=== PATIENT | female | born 1940 | race Caucasian/White ===

== ENCOUNTER 2017-11-25 16:27 | Emergency (ER) | payer OTHER ==
[~2017-11-25] VITALS: Ht 170.2 cm; Wt 69.0 kg
[~2017-11-25 16:27] MED LIST: ALBU90OI61 INH; ASPI325; ASPI325 PO; ASPI81EC; ATOR10; ATOR20; ATOR40TA PO; ATOR80 PO; Aspir-Trin325 MG PO; CALCAVITD PO; CARV3.125; CARV3.125 PO; CARV6.25 PO; CETI10 PO; CLOP75 PO; CODACE30 PO; CODGUAEL PO; Colace100 MG PO; DOCU100 PO; FISH1000 PO; FURO20; FURO20 PO; FURO40; FURO40 PO; Ferosul325 MG; Ferrous Sulfat325 M2 PO; HYDR1TAB94; HYDR1TAB94 PO; LISI5 PO; LORA1 PO; Lisinopril2.5 MG PO; MECL25 PO; METO25 PO; METO25ER PO; NITRSPRAY SL; POTA10T; POTA10T PO; POTCHL20ER PO; PRED20 PO; RXLORA1 PO; SULTRIDS PO; TRAM50 PO; [UNRECOGNIZED DRUG - CODE] PO; [UNRECOGNIZED DRUG - REMARK] PO
== END 2017-11-25 18:42 | disposition home or self-care (01) ==
LOC: ER 16:27
DX: S70.02XA Contusion of left hip, initial encounter (principal); R07.81 Pleurodynia; Z79.899 Other long term (current) drug therapy; Z79.82 Long term (current) use of aspirin; I10 Essential (primary) hypertension; I25.10 Atherosclerotic heart disease of native coronary artery without angina pectoris; I25.2 Old myocardial infarction; W01.0XXA Fall on same level from slipping, tripping and stumbling without subsequent striking against object, initial encounter
CPT/HCPCS: 71100; 73502; 99283

== ENCOUNTER 2019-06-30 17:01 | Observation (INO) | payer OTHER ==
[~2019-06-30] VITALS: Ht 167.6 cm; Wt 61.6 kg
[2019-06-30 17:32] LABS: BASOPHILS ABSOLUTE AUTO 0.08 K/mm3 (0.00-0.23); BASOPHILS PERCENT AUTO 1 % (0-2); EOSINOPHILS ABSOLUTE AUTO 0.51 K/mm3 (0.00-0.68); EOSINOPHILS PERCENT AUTO 4 % (0-6); Hematocrit 37.3 % (33.0-51.0); Hemoglobin 11.3 g/dL (11.5-16.0); IMMATURE GRAN ABSOLUTE AUTO 0.02 K/mm3 (0.00-0.10); IMMATURE GRAN PERCENT AUTO 0 % (0-1); LYMPHOCYTES ABSOLUTE AUTO 5.35 K/mm3 (0.84-5.20); LYMPHOCYTES PERCENT AUTO 46 % (21-46); MONOCYTES ABSOLUTE AUTO 0.68 K/mm3 (0.16-1.47); MONOCYTES PERCENT AUTO 6 % (4-13); Mean Corpuscular HGB 28.6 pg (26.0-34.0); Mean Corpuscular HGB Conc 30.3 g/dL (31.5-36.5); Mean Corpuscular Volume 94 fL (80-100); Mean Platelet Volume 10.7 fL (9.1-12.4); NEUTROPHILS ABSOLUTE AUTO 4.89 K/mm3 (1.96-9.15); NEUTROPHILS PERCENT AUTO 42 % (41-73); Platelet Count 240 K/mm3 (150-400); RDW Coefficient Variation 13.7 % (11.7-14.2); RDW Standard Deviation 47.8 fL (35.1-46.3); Red Blood Cell Count 3.95 M/mm3 (3.80-5.20); White Blood Cell Count 11.53 K/mm3 (4.00-11.30)
[2019-06-30 17:50] LABS: Alanine Aminotransfer (ALT/SGP 22 U/L (12-78); Albumin, Blood 3.5 g/dL (3.4-5.0); Albumin/Globulin Ratio 0.9 (0.8-1.8); Alk Phos 65 U/L (50-136); Anion Gap 11 mmol/L (6-16); Aspartate Aminotrans (AST/SGOT 26 U/L (12-37); Bilirubin, Total 0.5 mg/dL (0.1-1.0); Blood Urea Nitrogen 34 mg/dL (8-24); Bun/Creatinine Ratio 19.7 (12.0-20.0); CO2, Blood 25 mmol/L (21-32); Calcium, Blood 9.8 mg/dL (8.5-10.1); Chloride, Blood 101 mmol/L (98-108); Creatinine, Blood 1.73 mg/dL (0.40-1.00); Globulin, Blood 3.9 g/dL (2.2-4.0); Glomerular Filtration Rate 30 (60-); Glucose, Blood 128 mg/dL (70-99); Potassium, Blood 3.8 mmol/L (3.5-5.5); Sodium, Blood 137 mmol/L (136-145); Total Protein, Blood 7.4 g/dL (6.4-8.2); Troponin I <0.015 ng/mL (0.000-0.040)
[2019-06-30] MEDS ORDERED: MIRT15 PO (18:06)
[2019-06-30] MEDS ORDERED: METO25 PO (18:06)
[2019-06-30] MEDS ORDERED: FURO20 PO (18:06)
[2019-06-30] MEDS ORDERED: LISI5 PO (18:07)
[2019-06-30 18:23] LABS: International Normalized Ratio 0.95; Prothrombin Time Results 10.1 Sec (9.7-11.5)
[2019-06-30 18:37] LABS: Source, Urine Clean Catch
[2019-06-30 18:41] LABS: Appearance, Urine Clear (Clear); Bilirubin, Urine Neg (Neg); Blood, Urine 1+ (Neg); Color, Urine Yellow (P-Yellow); Glucose Qualitative, Urine Neg (Neg); Ketones, Urine Neg (Neg); Leukocyte Esterase, Urine 3+ (Neg); Nitrite, Urine Pos (Neg); Protein, Urine Neg (Neg); Specific Gravity, Urine 1.005 (1.003-1.022); Urobilinogen, Urine NORM (Normal)
[2019-06-30 18:52] LABS: White Blood Cells, Urine 25-50 /hpf (0-5)
[2019-06-30 18:53] LABS: Bacteria Many /hpf; Red Blood Cells, Urine 0-2 /hpf (0-2); Squamous Epithelial Cells Few /hpf (Few)
[2019-07-01 04:49] LABS: BASOPHILS ABSOLUTE AUTO 0.06 K/mm3 (0.00-0.23); BASOPHILS PERCENT AUTO 1 % (0-2); EOSINOPHILS ABSOLUTE AUTO 0.42 K/mm3 (0.00-0.68); EOSINOPHILS PERCENT AUTO 4 % (0-6); Hematocrit 28.4 % (33.0-51.0); Hemoglobin 8.8 g/dL (11.5-16.0); IMMATURE GRAN ABSOLUTE AUTO 0.02 K/mm3 (0.00-0.10); IMMATURE GRAN PERCENT AUTO 0 % (0-1); LYMPHOCYTES ABSOLUTE AUTO 3.37 K/mm3 (0.84-5.20); LYMPHOCYTES PERCENT AUTO 35 % (21-46); MONOCYTES ABSOLUTE AUTO 0.76 K/mm3 (0.16-1.47); MONOCYTES PERCENT AUTO 8 % (4-13); Mean Corpuscular Volume 94 fL (80-100); Mean Platelet Volume 10.9 fL (9.1-12.4); NEUTROPHILS ABSOLUTE AUTO 5.02 K/mm3 (1.96-9.15); NEUTROPHILS PERCENT AUTO 52 % (41-73); Platelet Count 175 K/mm3 (150-400); RDW Coefficient Variation 13.9 % (11.7-14.2); RDW Standard Deviation 47.4 fL (35.1-46.3); Red Blood Cell Count 3.03 M/mm3 (3.80-5.20); White Blood Cell Count 9.65 K/mm3 (4.00-11.30)
--- NOTE | 2019-07-01 05:08 | NUR ---
SHIFT SUMMARY: 78 Y/O FEMALE ADMITTED FOR SYNCOPE WITH FALL. SHE WAS STANDING UP FROM THE CHAIR WHEN SHE GOT DIZZY AND FELL. SHE HIT HER FORHEAD ON THE FLOOR, THERE IS QUESTION WHETHER SHE PASSES OUT OR NOT. SHE ARRIVED TO THE FLOOR VIA GURNEY. SHE WAS ABLE TO STAND AND TRANSFER SELF WITH NO DIFFICULTY. SHE WAS ALERT AND ORIENTED WIHT SOME OCCATIONAL CONFUSION. SHE DENIED ANY DIZZINESS THIS SHIFT. ORTHOSTATICS WERE NORMAL. TELEMETRY REPORTS NORMAL SINUS WITH PAC'S AT 70'S. IV INFUSED ALL NIGHT WITH NO DIFFICULTIES. NEURO CHECKS WERE ALL NEGATIVE. SLEPT BETWEEN INTERVENTIONS TONIGHT. BED ALARM PLACED FOR PERCAUTIONS, CALL LIGHT REMAINED IN REACH. NO FURTHER CHANGES TO REPORT WILL REPORT TO DAYSHIFT RN.
[2019-07-01 05:16] LABS: Bun/Creatinine Ratio 22.1 (12.0-20.0); Calcium, Blood 8.3 mg/dL (8.5-10.1); Creatinine, Blood 1.54 mg/dL (0.40-1.00); Potassium, Blood 4.2 mmol/L (3.5-5.5)
--- NOTE | 2019-07-01 06:42 | NUR ---
LAB RESULTS READ: NOTED A CHANGE IN HER HGB FROM 11.3 DOWN TO 8.8. HCT 37.3 DOWN TO 28.4. SPOKE TO DR. MUNGUIA REGARDING CHANGE, NEURO CHECKS NEGATIVE SO FAR. HE STATES TO JUST MONITOR IT FOR NOW. WILL PASS ON TO DAY SHIFT RN.
--- NOTE | 2019-07-01 13:03 | NUR ---
I NOTIFIED ABOUT 0750 OF ORION'S DROP IN HER H&H. I ALSO TOLD HER THAT CLINICALLY SHE LOOKED VERY STABLE. NO H/A. NO DIZZINESS. CLARKE. NO DOUBLE VISION. NO COMPLAINTS. SHE IS OX2. POOR HISTORIAN, PROBABLY AT HER BASELINE DEMENTIA.
[2019-07-01] MEDS ORDERED: ASPI325 PO (17:25)
[2019-07-01] MEDS ORDERED: CALCIUM 600 +1 EA11 PO (17:27)
[2019-07-01] MEDS ORDERED: DONE5 PO (17:32)
--- NOTE | 2019-07-01 18:38 | NUR ---
HER NEURO ASSESSMENT IS UNCHANGED THROUGHOUT THE DAY. SHE AMBULATES WELL WITH 1 ASSIST. SHE SETS OFF HER ALARMS BECAUSE SHE DOES NOT UNDERSTAND HOW TO USE THE NURSE CALL LIGHT OR TV. HER DAUGHTER VISITED THIS EVENING. THE PATIENT WANTED TO GO HOME. SHE JUST RECENTLY STARTED ON ARICEPT AT HOME FOR HER DEMENTIA. MED REC COMPLETED WITH HELP FROM THE DAUGHTER AND [facility].TELE NSR WITH PAC'S. IVF'S DC'D. PO INTAKE GOOD. MORE LAB ORDERED FOR MORNING.
[2019-07-02 05:18] LABS: Albumin, Blood 2.7 g/dL (3.4-5.0); Anion Gap 4 mmol/L (6-16); Blood Urea Nitrogen 28 mg/dL (8-24); Bun/Creatinine Ratio 18.7 (12.0-20.0); CO2, Blood 26 mmol/L (21-32); Calcium, Blood 8.5 mg/dL (8.5-10.1); Chloride, Blood 113 mmol/L (98-108); Glomerular Filtration Rate 36 (60-); Glucose, Blood 92 mg/dL (70-99); Phosphorus, Blood 3.4 mg/dL (2.5-4.9); Potassium, Blood 4.6 mmol/L (3.5-5.5); Sodium, Blood 143 mmol/L (136-145)
--- NOTE | 2019-07-02 05:21 | NUR ---
SHIFT SUMMARY NO ACUTE CHANGES THIS SHIFT. SLEPT WELL T/O NIGHT. AOX2, UNAWARE DATE OR PLACE, HAS HX DEMENTIA. VSS. DENIES DIZZINESS, DYSPNEA, N/V, HEADACHE OR PAIN. TELE IN PLACE, NSR @69. CALL LIGHT IN REACH & I WILL CONT. TO MONITOR PT UNTIL DAY SHIFT RN ASSUMES CARE.
--- NOTE | 2019-07-02 14:12 | NUR ---
Spiritual care visit conducted. Patient is sitting up in bed and alert. Patient is kind and smiles often. Patient repeats herself and forgets the information she has been given but she enjoys the moment she is in. Patient tells me about her who 20 years ago or more, about her daughter that she lives with and about the ay years that she went to jehovah[employer] witness every Sunday. I listen empathically and provide levity, companionship and a life review. Patient responds well and tells me how she enjoys visiting with me.
[2019-07-02] MEDS ORDERED: ASPI81CH PO (14:50)
[2019-07-02] MEDS ORDERED: THERA-D2000 UNIT PO (14:54)
[2019-07-02] MEDS ORDERED: CEFU500T30 PO (14:55)
--- NOTE | 2019-07-02 16:25 | NUR ---
LATE ENTRY: DISCHARGE SUMMARY: PATIENT DENIED PAIN OR DISCOMFORT THROUGHOUT SHIFT. PATIENT DENIED DIZZINESS OR LIGHTHEADEDNESS AT REST AND WITH MOBILITY. PATIENT AMBULATED SAFELY WITH FWW, GAIT BELT AND SBA. PATIENT DENIED CHANGES TO STATUS DURING AMBULATION. NO CHANGES TO NEURO STATUS THROUGHOUT SHIFT. PATIENT REPORTED IN THE MORNING THAT SHE WAS FEELING BETTER. PER DR. GALEANO ORDERS, PATIENT DISCHARGED. DISCHARGE RX SENT TO [facility] PER PREFERENCE. DISCHARGE INSTRUCTIONS AND EDUCATION PROVIDED TO PATIENT, DAUGHTER AND GRANDDAUGHTER. CONCERNS AND QUESTIONS ADDRESSED. DISCHARGE EDUCATION AND PAPERWORK PROVIDED TO PATIENT AND FAMILY. PATIENT DISCHARGED IN WHEELCHAIR WITH PROGRESSIVE DIE MAKER. PATIENT STABLE AT TIME OF DISCHARGE.
== END 2019-07-02 15:36 | disposition home or self-care (01) ==
LOC: ER 17:01 → MEDS 17:02 → ENPENDDIS 07-02 11:36 → MEDS 07-02 15:36
PROVIDERS: Emergency Medicine; Internal Medicine; Nurse Practitioner Acute Care; ADMIT Internal Medicine
DX: R55 Syncope and collapse (principal); N39.0 Urinary tract infection, site not specified; B96.20 Unspecified Escherichia coli [E. coli] as the cause of diseases classified elsewhere; E86.0 Dehydration; S00.83XA Contusion of other part of head, initial encounter; N17.9 Acute kidney failure, unspecified; I12.9 Hypertensive chronic kidney disease with stage 1 through stage 4 chronic kidney disease, or unspecified chronic kidney disease; N18.9 Chronic kidney disease, unspecified; D63.1 Anemia in chronic kidney disease; I25.10 Atherosclerotic heart disease of native coronary artery without angina pectoris; I25.2 Old myocardial infarction; F03.90 Unspecified dementia, unspecified severity, without behavioral disturbance, psychotic disturbance, mood disturbance, and anxiety; E78.5 Hyperlipidemia, unspecified; I73.9 Peripheral vascular disease, unspecified; Z95.1 Presence of aortocoronary bypass graft; Z79.82 Long term (current) use of aspirin; Z79.02 Long term (current) use of antithrombotics/antiplatelets; Z79.899 Other long term (current) drug therapy; W19.XXXA Unspecified fall, initial encounter; Y92.013 Bedroom of single-family (private) house as the place of occurrence of the external cause; S06.9X9A Unspecified intracranial injury with loss of consciousness of unspecified duration, initial encounter
CPT/HCPCS: 36415; 70450; 71046; 72125; 80048; 80053; 80069; 81001; 83880; 84484; 85025; 85610; 85730; 87077; 87086; 87186; 93005; 93010; 93306; 93880; 96361; 96365; 97110; 97116; 97161; 99285-25; J0696; J3480; J7030; P9612

== ENCOUNTER 2020-01-16 00:11 | Emergency (ER) | payer OTHER ==
[~2020-01-16] VITALS: Ht 170.2 cm; Wt 63.5 kg
[~2020-01-16 00:11] MED LIST changes: +ASPI81CH PO; +CALCIUM 600 +1 EA11 PO; +CEFU500T30 PO; +DONE5 PO; +MIRT15 PO; +THERA-D2000 UNIT PO
[2020-01-16 01:06] LABS: BASOPHILS ABSOLUTE AUTO 0.11 K/mm3 (0.00-0.23); BASOPHILS PERCENT AUTO 1 % (0-2); EOSINOPHILS ABSOLUTE AUTO 0.69 K/mm3 (0.00-0.68); EOSINOPHILS PERCENT AUTO 8 % (0-6); Hematocrit 37.3 % (33.0-51.0); Hemoglobin 11.4 g/dL (11.5-16.0); IMMATURE GRAN ABSOLUTE AUTO 0.02 K/mm3 (0.00-0.10); IMMATURE GRAN PERCENT AUTO 0 % (0-1); LYMPHOCYTES PERCENT AUTO 33 % (21-46); MONOCYTES ABSOLUTE AUTO 0.65 K/mm3 (0.16-1.47); MONOCYTES PERCENT AUTO 8 % (4-13); Mean Corpuscular HGB 27.6 pg (26.0-34.0); Mean Corpuscular HGB Conc 30.6 g/dL (31.5-36.5); Mean Corpuscular Volume 90 fL (80-100); Mean Platelet Volume 10.5 fL (9.1-12.4); NEUTROPHILS PERCENT AUTO 50 % (41-73); Platelet Count 223 K/mm3 (150-400); RDW Coefficient Variation 13.7 % (11.7-14.2); RDW Standard Deviation 45.3 fL (35.1-46.3); Red Blood Cell Count 4.13 M/mm3 (3.80-5.20); White Blood Cell Count 8.27 K/mm3 (4.00-11.30)
[2020-01-16 01:24] LABS: Albumin, Blood 3.3 g/dL (3.4-5.0); Albumin/Globulin Ratio 0.8 (0.8-1.8); Bilirubin, Total 0.3 mg/dL (0.1-1.0); Bun/Creatinine Ratio 21.2 (12.0-20.0); Calcium, Blood 8.9 mg/dL (8.5-10.1); Creatinine, Blood 1.65 mg/dL (0.40-1.00); Globulin, Blood 4.1 g/dL (2.2-4.0); Potassium, Blood 3.4 mmol/L (3.5-5.5); Total Protein, Blood 7.4 g/dL (6.4-8.2)
== END 2020-01-16 02:10 | disposition home or self-care (01) ==
LOC: ER 00:11
PROVIDERS: Emergency Medicine
DX: R10.9 Unspecified abdominal pain (principal); I10 Essential (primary) hypertension; I25.810 Atherosclerosis of coronary artery bypass graft(s) without angina pectoris; I25.2 Old myocardial infarction; Z79.2 Long term (current) use of antibiotics; Z79.899 Other long term (current) drug therapy
CPT/HCPCS: 36415; 80053; 83690; 85025; 93005; 93010; 99284-25

== ENCOUNTER 2020-09-07 17:59 | Inpatient (IN) | payer OTHER ==
[~2020-09-07] VITALS: Ht 165.1 cm; Wt 71.3 kg
[~2020-09-07 17:59] MED LIST changes: -ASPI81CH PO; +Aspirin EC81 MG PO
[2020-09-07 20:18] LABS: BASOPHILS ABSOLUTE AUTO 0.06 K/mm3 (0.00-0.23); BASOPHILS PERCENT AUTO 1 % (0-2); EOSINOPHILS ABSOLUTE AUTO 0.08 K/mm3 (0.00-0.68); EOSINOPHILS PERCENT AUTO 1 % (0-6); Hemoglobin 9.5 g/dL (11.5-16.0); IMMATURE GRAN ABSOLUTE AUTO 0.07 K/mm3 (0.00-0.10); IMMATURE GRAN PERCENT AUTO 1 % (0-1); LYMPHOCYTES ABSOLUTE AUTO 1.57 K/mm3 (0.84-5.20); LYMPHOCYTES PERCENT AUTO 13 % (21-46); MONOCYTES ABSOLUTE AUTO 0.68 K/mm3 (0.16-1.47); MONOCYTES PERCENT AUTO 6 % (4-13); Mean Corpuscular HGB 28.4 pg (26.0-34.0); Mean Corpuscular HGB Conc 30.6 g/dL (31.5-36.5); Mean Corpuscular Volume 93 fL (80-100); Mean Platelet Volume 10.9 fL (9.1-12.4); NEUTROPHILS ABSOLUTE AUTO 9.28 K/mm3 (1.96-9.15); NEUTROPHILS PERCENT AUTO 79 % (41-73); Platelet Count 142 K/mm3 (150-400); RDW Coefficient Variation 14.2 % (11.7-14.2); Red Blood Cell Count 3.34 M/mm3 (3.80-5.20); White Blood Cell Count 11.74 K/mm3 (4.00-11.30)
[2020-09-07 21:01] LABS: Albumin, Blood 3.3 g/dL (3.4-5.0); Albumin/Globulin Ratio 0.8 (0.8-1.8); Bun/Creatinine Ratio 19.4 (12.0-20.0); Calcium, Blood 9.5 mg/dL (8.5-10.1); Creatinine, Blood 3.51 mg/dL (0.40-1.00); Potassium, Blood 3.9 mmol/L (3.5-5.5); Total Protein, Blood 7.3 g/dL (6.4-8.2)
--- NOTE | 2020-09-07 22:47 | NUR ---
REPORT RECIEVED FROM SISI RAO RN AND AWAITING PT T/F TO ROOM 303.
--- NOTE | 2020-09-07 23:20 | NUR ---
PT T/F TO ROOM 303 VIA [facility] AT 2305 W/PT'S DAUGHTER PRESENT TO ASSIST W/ADMIT. SHE IS A POOR HISTORIAN W/MEMORY LOSS AND LIVES W/HER DAUGHTER HER 24HR/DAY CAREGIVER. SHE WAS ORIENTED TO ROOM AND CALL SYSTEM BUT BED ALARM ON FOR POSSIBLE IMPULSIVITY. SHE'S ON BEDREST FOR FX'D PELVIS/SACRUM AND REPORTS PAIN TO REGION W/ANY MOVEMENT. PLAN TO GIVE PRN PAIN MEDS PER EMAR. DAUGHTER REPORTS PT HASN'T HAD ANY HOME MEDS TODAY AND HAS HAD VERY LIMITED ORAL INTAKE SINCE SUNDAY. DECREASED KIDNEY FUNCTION OBSERVED. PLAN TO DISCUSS THESE CONCERNS W/HOSPITALIST AND WILL ATTEMPT TO GET URINE SPECIMEN RX'D. BEDPAN USE MAY BE DIFFICULT W/PELVIS PAIN SO MAY NEED CATH ORDERS. WCTM.
--- NOTE | 2020-09-07 23:25 | NUR ---
ILEANA ALERTED TO DECREASED RENAL FUNCTION (BUN 68, CREAT 3.51, GFR 13). SHARPE PLACEMENT ORDERED FOR STRICT I/O'S AND NS AT 75 ML/HR RX'D.
--- NOTE | 2020-09-08 01:15 | NUR ---
4FR INDWELLING SHARPE CATHETER PLACED FOR STRICT I/O'S W/STERILE TECHNIQUE MAINTAINED. PT PREMEDICATED W/DILAUDID 0.2MG IV PRN FOR PELVIS AND R.HIP PAIN. SHARPE PATENT/DRAINING YELLOW CLOUDY URINE. SPECIMEN OBTAINED AND SENT, RESULTS PENDING.
[2020-09-08 01:26] LABS: Source, Urine Catheter
[2020-09-08 01:30] LABS: Bilirubin, Urine Neg (Neg); Blood, Urine 2+ (Neg); Glucose Qualitative, Urine Neg (Neg); Ketones, Urine Neg (Neg); Leukocyte Esterase, Urine Neg (Neg); Nitrite, Urine Neg (Neg); Protein, Urine 1+ (Neg); Urobilinogen, Urine NORM (Normal)
[2020-09-08 01:36] LABS: Appearance, Urine Clear (Clear); Color, Urine Yellow (P-Yellow)
[2020-09-08 01:37] LABS: Amorphous Light (0-Heavy); Bacteria Mod /hpf; Red Blood Cells, Urine 0-2 /hpf (0-2); Squamous Epithelial Cells Few /hpf (Few)
[2020-09-08 05:14] LABS: BASOPHILS ABSOLUTE AUTO 0.05 K/mm3 (0.00-0.23); BASOPHILS PERCENT AUTO 1 % (0-2); EOSINOPHILS ABSOLUTE AUTO 0.25 K/mm3 (0.00-0.68); EOSINOPHILS PERCENT AUTO 3 % (0-6); Hemoglobin 8.4 g/dL (11.5-16.0); IMMATURE GRAN ABSOLUTE AUTO 0.05 K/mm3 (0.00-0.10); IMMATURE GRAN PERCENT AUTO 1 % (0-1); LYMPHOCYTES ABSOLUTE AUTO 1.96 K/mm3 (0.84-5.20); LYMPHOCYTES PERCENT AUTO 19 % (21-46); MONOCYTES ABSOLUTE AUTO 0.66 K/mm3 (0.16-1.47); MONOCYTES PERCENT AUTO 7 % (4-13); Mean Corpuscular HGB Conc 32.3 g/dL (31.5-36.5); Mean Corpuscular Volume 90 fL (80-100); Mean Platelet Volume 10.9 fL (9.1-12.4); NEUTROPHILS ABSOLUTE AUTO 7.18 K/mm3 (1.96-9.15); NEUTROPHILS PERCENT AUTO 71 % (41-73); Platelet Count 152 K/mm3 (150-400); RDW Coefficient Variation 14.3 % (11.7-14.2); RDW Standard Deviation 47.5 fL (35.1-46.3); White Blood Cell Count 10.15 K/mm3 (4.00-11.30)
[2020-09-08 05:43] LABS: Albumin, Blood 2.6 g/dL (3.4-5.0); Anion Gap 11 mmol/L (6-16); Blood Urea Nitrogen 68 mg/dL (8-24); Bun/Creatinine Ratio 19.7 (12.0-20.0); CO2, Blood 23 mmol/L (21-32); Calcium, Blood 8.8 mg/dL (8.5-10.1); Chloride, Blood 107 mmol/L (98-108); Creatinine, Blood 3.46 mg/dL (0.40-1.00); Glomerular Filtration Rate 14 (60-); Glucose, Blood 93 mg/dL (70-99); Potassium, Blood 3.8 mmol/L (3.5-5.5); Sodium, Blood 141 mmol/L (136-145)
--- NOTE | 2020-09-08 06:29 | NUR ---
SUMMARY: PT IS PLEASANT AND COOPERATIVE W/CARE AND IS ABLE TO ANSWER SOME Q'S APPROPRIATELY BUT HAS MEMORY ISSUES W/ORIENTATION TO SELF, FAMILY AND EVENT ONLY. BED ALARM ON FOR POSSIBLE FORGETFULLNEES AND IMPULSIVITY. SHE IS ON BEDREST FOR FX'D PELVIS/SACRUM AND REPORTS PAIN W/MOVEMENT. FLEXION AND TWISTING MOTIONS NOT PERMITTED W/TURN SCHEDULE MAINTAINED VIA LOG ROLLING. SHE RECIEVED SCHEDULED TYLENOL FOR IMPROVED PAIN CONTROL AND X1 DOSE PRN DILAUDID PREMEDICATION FOR SHARPE INSERTION. PT HAS POOR KIDNEY FUNCTION SO STRICT I/O'S WERE ORDERED W/IVF COMMENCED AND SHARPE PLACED. IT REMAINS PATENT AND DRAINING YELLOW CLOUDY URINE W/CULTURE PENDING. HOME MEDS RECIEVED AND PO INTAKE ENCOURAGED W/ASP PREC'S MAINTAINED. PT REFUSES SNF/HOME HEALTH SO PT WAS ADMITTED FOR D/C TEACHING. HER CAREGIVER DAUGHTER (MANE) PLANS TO PROVIDE REHAB AT HOME FOLLOWING TEACHING AND SS CX. SHE IS ALSO THE ONLY PERSON TO RECIEVE INFO PER THE HIPPA PAPERWORK THOUGH OTHERS ARE ALOUD TO VISIT. NO ACUTE CHANGES, VSS/AFEBRILE. WCTM AND REPORT TO DAY RN.
--- NOTE | 2020-09-08 14:02 | NUR ---
Pt agreed to have this student nurse assisting in care.
--- NOTE | 2020-09-08 17:16 | NUR ---
Spiritual care note: Mrs. Lara appeared weak, frail, and disengaed. Per admit trigger, I was tasked to speak to her about ACP. She told me she wants ehr dtr to be MPOA, but admits they have not ever spoken about "this stuff." "I am too tired to talk right now." I left an advanced directive packet on bedisde table and advised I would be available to help complete if she desires.
--- NOTE | 2020-09-08 17:43 | NUR ---
SUMMARY PT SITTING UP IN BED EATING DINNER, ANNETTE IS AT THE BEDSIDE, PT WORKED WITH THERAPY TODAY, PAINFUL WITH ANY MOVEMENT, HAS BEEN PLEASANT AND COOPERATIVE T/O THE DAY, CONFUSED AT TIMES, POOR APPETITE, DAUGHTER ASSISTING WITH DINNER, THE OTHER DAUGHTER WILL BE COMING IN [place] TO SEE THE PT, POSSIBLE PLAN TO DC HOME TOMORROW, VSS, WILL CONT TO MONITOR
--- NOTE | 2020-09-09 03:50 | NUR ---
BUFFER OPERATOR SUMMARY A/O TO SELF AND FAMILY. HAS GREAT DIFFICULTIES WITH TURNING AND YELLS OUT IN PAIN, MEDICATED PER EMAR. SHARPE PATENT AND DRAINING. APPEARED TO SLEEP T/O NIGHT. BREATHING IS EVEN AND UNLABORED. VSS. NO ACUTE CHANGES AT THIS TIME. BED IN LOWEST POSITION, ALARM ON, CALL LIGHT WITHIN REACH. WILL CONTINUE TO MONITOR AND REPORT TO ONCOMING RN.
[2020-09-09 04:50] LABS: BASOPHILS ABSOLUTE AUTO 0.05 K/mm3 (0.00-0.23); BASOPHILS PERCENT AUTO 1 % (0-2); EOSINOPHILS ABSOLUTE AUTO 0.56 K/mm3 (0.00-0.68); EOSINOPHILS PERCENT AUTO 7 % (0-6); Hematocrit 25.1 % (33.0-51.0); Hemoglobin 7.8 g/dL (11.5-16.0); IMMATURE GRAN ABSOLUTE AUTO 0.04 K/mm3 (0.00-0.10); IMMATURE GRAN PERCENT AUTO 1 % (0-1); LYMPHOCYTES ABSOLUTE AUTO 1.59 K/mm3 (0.84-5.20); LYMPHOCYTES PERCENT AUTO 19 % (21-46); MONOCYTES ABSOLUTE AUTO 0.52 K/mm3 (0.16-1.47); MONOCYTES PERCENT AUTO 6 % (4-13); Mean Corpuscular HGB 28.7 pg (26.0-34.0); Mean Corpuscular HGB Conc 31.1 g/dL (31.5-36.5); Mean Corpuscular Volume 92 fL (80-100); Mean Platelet Volume 10.6 fL (9.1-12.4); NEUTROPHILS ABSOLUTE AUTO 5.56 K/mm3 (1.96-9.15); NEUTROPHILS PERCENT AUTO 67 % (41-73); Platelet Count 165 K/mm3 (150-400); RDW Coefficient Variation 14.5 % (11.7-14.2); RDW Standard Deviation 48.6 fL (35.1-46.3); Red Blood Cell Count 2.72 M/mm3 (3.80-5.20); White Blood Cell Count 8.32 K/mm3 (4.00-11.30)
[2020-09-09 05:09] LABS: Albumin, Blood 2.5 g/dL (3.4-5.0); Anion Gap 9 mmol/L (6-16); Blood Urea Nitrogen 70 mg/dL (8-24); Bun/Creatinine Ratio 24.2 (12.0-20.0); CO2, Blood 22 mmol/L (21-32); CPK Creatine Kinase 522 U/L (26-193); Calcium, Blood 8.2 mg/dL (8.5-10.1); Chloride, Blood 112 mmol/L (98-108); Creatinine, Blood 2.89 mg/dL (0.40-1.00); Glomerular Filtration Rate 17 (60-); Glucose, Blood 88 mg/dL (70-99); Phosphorus, Blood 4.4 mg/dL (2.5-4.9); Potassium, Blood 3.8 mmol/L (3.5-5.5); Sodium, Blood 143 mmol/L (136-145)
--- NOTE | 2020-09-09 05:31 | NUR ---
PHYSICIAN CONTACT NOTIFIED CARRIER PACKER PROVIDER HGB OF 7.8, DOWN FROM ADMIT 2 DAYS PRIOR AT 9.5. NO SIGNS OF BLEEDING NOTED. NO NEW ORDERS AT THIS TIME.
[2020-09-09 08:48] LABS: Percent Saturation 11.4 % (15.0-50.0)
[2020-09-09 12:32] LABS: Hematocrit 19.9 % (33.0-51.0); Hemoglobin 6.1 g/dL (11.5-16.0)
--- NOTE | 2020-09-09 16:48 | NUR ---
TRANSFERED CARE OF PT TO RN LUI AT 1635. PT HAS BEEN VERY TIRED TODAY AOX3 AND COOPERATIVE OF CARE. PT TREATED FOR PAIN PER EMAR. PT DOES NOT LIKE POSITION CHANGE AND HAS TO BE ENCOURAGED TO MOVE AROUND. PT CALLS APPROPRIATELY AND ANSWERS ALL QUESTIONS. PT HAS LOW HGB. BLOOD SLIP WAS VERIFIED AND SENT PRIOR TO CHANGE IN NURSES. ANNEMARIE PATENT AT THIS TIME.
[2020-09-09 19:05] LABS: BASOPHILS ABSOLUTE AUTO 0.05 K/mm3 (0.00-0.23); BASOPHILS PERCENT AUTO 1 % (0-2); EOSINOPHILS ABSOLUTE AUTO 0.28 K/mm3 (0.00-0.68); EOSINOPHILS PERCENT AUTO 4 % (0-6); Hematocrit 24.1 % (33.0-51.0); Hemoglobin 7.6 g/dL (11.5-16.0); IMMATURE GRAN ABSOLUTE AUTO 0.02 K/mm3 (0.00-0.10); IMMATURE GRAN PERCENT AUTO 0 % (0-1); LYMPHOCYTES ABSOLUTE AUTO 1.42 K/mm3 (0.84-5.20); LYMPHOCYTES PERCENT AUTO 20 % (21-46); MONOCYTES ABSOLUTE AUTO 0.45 K/mm3 (0.16-1.47); MONOCYTES PERCENT AUTO 6 % (4-13); Mean Corpuscular HGB 28.4 pg (26.0-34.0); Mean Corpuscular HGB Conc 31.5 g/dL (31.5-36.5); Mean Corpuscular Volume 90 fL (80-100); Mean Platelet Volume 10.2 fL (9.1-12.4); NEUTROPHILS ABSOLUTE AUTO 5.07 K/mm3 (1.96-9.15); NEUTROPHILS PERCENT AUTO 70 % (41-73); Platelet Count 175 K/mm3 (150-400); RDW Coefficient Variation 14.6 % (11.7-14.2); RDW Standard Deviation 47.3 fL (35.1-46.3); Red Blood Cell Count 2.68 M/mm3 (3.80-5.20); White Blood Cell Count 7.29 K/mm3 (4.00-11.30)
--- NOTE | 2020-09-09 19:12 | NUR ---
ASSUMED CARE OF THIS PATIENT AT 1700. AT 1730, TOOK PT VS FOR PRE-BLOOD TRANSFUSION VS. VSS, TEMP WAS 99.1 AND R ARM SLIGHT JERKS NOTED. BLOOD STARTED AT 1745 AND INFUSED FOR 15 MINUTES AT A RATE OF 65ML/HR. AT 15 MINUTE CHECK (AFTER 15-20ML INFUSED), PT WAS TACHYPNEIC (RR 24) AND TACHYCARDIC (125HR), AND RUE AND RLE WERE HAVING FREQUENT MODERATE TREMORS/JERKS THAT PT COULDN'T CONTROL. PT SOMEWHAT CONFUSED AT BASELINE, BUT MUCH MORE CONFUSED AND AGITATED WELL. DR PEREZ AND ILEANA CALLED, BOTH AT BEDSIDE. IV BENADRYL AND IV PEPCID GIVEN. PO TYLENOL AND PO TRAMADOL HAD BEEN GIVEN SHORTLY BEFORE BLOOD STARTED FOR HER R HIP PAIN.
--- NOTE | 2020-09-09 19:22 | NUR ---
REPORT GIVEN TO NURSE ON PCU
[2020-09-09 19:27] LABS: Magnesium, Blood 2.4 mg/dL (1.6-2.4)
[2020-09-09 19:28] LABS: Albumin, Blood 2.5 g/dL (3.4-5.0); Anion Gap 11 mmol/L (6-16); Blood Urea Nitrogen 60 mg/dL (8-24); Bun/Creatinine Ratio 27.4 (12.0-20.0); CO2, Blood 19 mmol/L (21-32); Calcium, Blood 8.4 mg/dL (8.5-10.1); Chloride, Blood 113 mmol/L (98-108); Creatinine, Blood 2.19 mg/dL (0.40-1.00); Glomerular Filtration Rate 23 (60-); Glucose, Blood 112 mg/dL (70-99); Phosphorus, Blood 2.4 mg/dL (2.5-4.9); Potassium, Blood 3.8 mmol/L (3.5-5.5); Sodium, Blood 143 mmol/L (136-145)
--- NOTE | 2020-09-09 19:33 | NUR ---
TRANSFERED PT TO PCU RM 1
[2020-09-09 19:43] LABS: Base Excess Venous -4.5 mmol/L; Bicarbonate Venous 21.4 mmol/L (24.0-30.0); PCO2 Venous 25.7 mmHg (38-42); PO2 Venous 168 mmHg (38-42); pH Blood Venous 7.48 (7.34-7.37)
--- NOTE | 2020-09-09 19:48 | NUR ---
ASSUMED CARE PT ARRIVED FROM MEDICAL FLOOR; PT IS ALERT AND VERY CONFUSED; ANSWERS YES/NO QUESTIONS BUT UNABLE TO TRACK CONVERSATION AND STAFF FOCUSED; VSS; DENIES CHEST PAIN; NSR NOTED ON TELE W/ HR 90'S; O2 SATS >92 ON RA; ORIENTED TO ROOM / UNIT; SHARPE PATENT & DRAINING; CALL LIGHT IN REACH; BED IN LOWEST POSITION; BED ALARM ON FOR SAFETY. .
--- NOTE | 2020-09-09 21:20 | NUR ---
UPDATE DISCUSSED W/ ILEANA [place] HGB, AND CONVERSATION W/ LAB REGARDING TRANSFUSION; NO INDICATION TO REACTION AT THIS POINT, HOWEVER PATHOLOGIST UNAVAILABLE TO CONFIRM; NO ACTIVE BLEEDING NOTED; NO NEW ORDERS GIVEN.
[2020-09-10 05:27] LABS: BASOPHILS ABSOLUTE AUTO 0.09 K/mm3 (0.00-0.23); BASOPHILS PERCENT AUTO 1 % (0-2); EOSINOPHILS ABSOLUTE AUTO 0.81 K/mm3 (0.00-0.68); EOSINOPHILS PERCENT AUTO 10 % (0-6); Hemoglobin 8.1 g/dL (11.5-16.0); IMMATURE GRAN ABSOLUTE AUTO 0.03 K/mm3 (0.00-0.10); IMMATURE GRAN PERCENT AUTO 0 % (0-1); LYMPHOCYTES ABSOLUTE AUTO 2.13 K/mm3 (0.84-5.20); LYMPHOCYTES PERCENT AUTO 27 % (21-46); MONOCYTES ABSOLUTE AUTO 0.55 K/mm3 (0.16-1.47); MONOCYTES PERCENT AUTO 7 % (4-13); Mean Corpuscular HGB 28.8 pg (26.0-34.0); Mean Corpuscular HGB Conc 31.2 g/dL (31.5-36.5); Mean Corpuscular Volume 93 fL (80-100); Mean Platelet Volume 10.2 fL (9.1-12.4); NEUTROPHILS PERCENT AUTO 54 % (41-73); Platelet Count 202 K/mm3 (150-400); RDW Coefficient Variation 14.7 % (11.7-14.2); Red Blood Cell Count 2.81 M/mm3 (3.80-5.20); White Blood Cell Count 7.81 K/mm3 (4.00-11.30)
--- NOTE | 2020-09-10 05:35 | NUR ---
SHIFT SUMMARY PT ALERT, HOWEVER AGITATED ON AND OFF THIS SHIFT; PT QUITE CONFUSED; VSS; NSR / SINUS TACH NOTED ON TELE; O2 SATS >93 ON RA; SHARPE PATENT & DRAINING YELLOW; MANAGER IT SECURITY TALKED TO DAUGHTER BY PHONE A COUPLE TIMES AND ASSISTED PT IN CALLING DAUGHTER TO HELP CALM HER; THIS RN TALKED TO DAUGHTER BY PHONE THIS MORNING; PT IS IMPULSIVE AND DIFFICULT TO REDIRECT AT TIMES; SEEMS TO BE MORE AGITATED WITH PAIN; FENTANYL GIVEN X2, REFER TO EMAR; SCHEDULED TYLENOL ADMINISTERED PER EMAR IN APPLESAUCE; PO FLUIDS ENCOURAGED; PT CURRENTLY RESTING IN BED; NO DISTRESS NOTED; CALL LIGHT IN REACH; BED IN LOWEST POSITION; WILL CONTINUE TO MONITOR CLOSELY UNTIL HAND OFF TO DAY SHIFT RN.
[2020-09-10 05:47] LABS: Albumin, Blood 2.6 g/dL (3.4-5.0); Anion Gap 8 mmol/L (6-16); Blood Urea Nitrogen 51 mg/dL (8-24); Bun/Creatinine Ratio 26.7 (12.0-20.0); CO2, Blood 21 mmol/L (21-32); CPK Creatine Kinase 477 U/L (26-193); Calcium, Blood 8.5 mg/dL (8.5-10.1); Chloride, Blood 115 mmol/L (98-108); Creatinine, Blood 1.91 mg/dL (0.40-1.00); Glomerular Filtration Rate 27 (60-); Glucose, Blood 89 mg/dL (70-99); Phosphorus, Blood 2.5 mg/dL (2.5-4.9); Potassium, Blood 4.1 mmol/L (3.5-5.5); Sodium, Blood 144 mmol/L (136-145)
--- NOTE | 2020-09-10 18:48 | NUR ---
SHIFT SUMMARY: PT ALERT AND CONFUSED T/OUT SHIFT, RAMBLING ABOUT UNRELATED TOPICS AT TIMES BUT ALSO ABLE TO ANSWER QUESTIONS APPROPRIATELY AND MAKE NEEDS KNOWN. PT CONTINUES ON ROOM AIR, O2 SATS MAINTAINED >92%. AT APPROX 0930, PT CONVERTED FROM SINUS RHYTHM/TACH TO AFIB WITH RATES RANGING FROM 80'S-130'S WITH EPISODES UP TO 190'S. DR CALLE NOTIFIED, TO AND FROM BEDSIDE, PT MEDICATED PER EMAR. PT'S RATE WAS CONTROLLED, THEN APPROX 1430 PT CONVERTED BACK TO SINUS RHYTHM. INDWELLING SHARPE DC'D TODAY, PT IN ATTENDS AND BEING CHANGED NEEDED OR PLACED ON BEDPAN. BED ALARM IN PLACE, PT HAS NOT ATTEMPTED TO EXIT BED BUT DOES HAVE PERIODS OF AGITATION AND FIDGETING. WILL CONTINUE TO MONITOR AND TREAT ACCORDINGLY UNTIL CHANGE OF SHIFT.
[2020-09-10 21:13] LABS: Hematocrit 24.5 % (33.0-51.0); Hemoglobin 7.7 g/dL (11.5-16.0)
--- NOTE | 2020-09-11 01:59 | NUR ---
HADOL HALDOL PRN ORDER OBTAINED FOR AGITATION. ALREADY ON ZOFRAN/ARICET. QTC MEASURED AT 0.46.
[2020-09-11 04:20] LABS: BASOPHILS ABSOLUTE AUTO 0.06 K/mm3 (0.00-0.23); BASOPHILS PERCENT AUTO 1 % (0-2); EOSINOPHILS ABSOLUTE AUTO 0.15 K/mm3 (0.00-0.68); EOSINOPHILS PERCENT AUTO 1 % (0-6); Hematocrit 24.4 % (33.0-51.0); Hemoglobin 7.8 g/dL (11.5-16.0); IMMATURE GRAN ABSOLUTE AUTO 0.09 K/mm3 (0.00-0.10); IMMATURE GRAN PERCENT AUTO 1 % (0-1); LYMPHOCYTES ABSOLUTE AUTO 2.45 K/mm3 (0.84-5.20); LYMPHOCYTES PERCENT AUTO 22 % (21-46); MONOCYTES ABSOLUTE AUTO 0.99 K/mm3 (0.16-1.47); MONOCYTES PERCENT AUTO 9 % (4-13); Mean Corpuscular HGB 28.9 pg (26.0-34.0); Mean Corpuscular Volume 90 fL (80-100); Mean Platelet Volume 10.1 fL (9.1-12.4); NEUTROPHILS ABSOLUTE AUTO 7.23 K/mm3 (1.96-9.15); NEUTROPHILS PERCENT AUTO 66 % (41-73); NRBC ABSOLUTE 0.02 K/mm3 (0.00-0.02); NRBC Auto 0.2 /100 WBC (0.0-0.2); Platelet Count 231 K/mm3 (150-400); RDW Standard Deviation 48.6 fL (35.1-46.3); White Blood Cell Count 10.97 K/mm3 (4.00-11.30)
[2020-09-11 04:36] LABS: Albumin, Blood 2.8 g/dL (3.4-5.0); Anion Gap 8 mmol/L (6-16); Blood Urea Nitrogen 43 mg/dL (8-24); Bun/Creatinine Ratio 28.7 (12.0-20.0); CO2, Blood 21 mmol/L (21-32); Calcium, Blood 8.9 mg/dL (8.5-10.1); Chloride, Blood 117 mmol/L (98-108); Glomerular Filtration Rate 36 (60-); Glucose, Blood 126 mg/dL (70-99); Phosphorus, Blood 1.9 mg/dL (2.5-4.9); Potassium, Blood 4.4 mmol/L (3.5-5.5); Sodium, Blood 146 mmol/L (136-145)
--- NOTE | 2020-09-11 05:09 | NUR ---
SHIFT SUMMARY PT INCREASINGLY CONFUSED AND AGITATED. ALERT TO SELF. HALLUCINATING CHILDREN AND WOMEN GETTING INTO CARS. PT FREQUENTLY ATTEMPTING TO GET OUT OF BED, STATING SHE NEEDS TO LEAVE AND GO HOME. PT WOULD NOT SIT IN CHAIR, WOULD NOT SIT IN BED, JUST ASKING US TO LEAVE HER ALONE AND LET HER GO. PT HAS NO IDEA WHERE SHE IS, DOES NOT BELIEVE SHE IS IN THE HOSPITAL. FINALLY RN CALLED TO GET RESTRAINT ORDER - LAUREN VEST ON - AND SOME HALDOL ORDERED. PT REPEATEDLY PULLING AT LINES AND HEART MONITOR. DAUGHTER CALLED FOR AN UPDATE, AND THAT WAS A TOUGH CONVERSATION DAUGHTER VERY FRUSTRATED WITH ALL STAFF, FEELS LIKE WE ARE TREATING HER MOTHER INHUMANELY. BELIEVES WE ARE MAKING HER MORE SICK, AND NOT GETTING HER BETTER. PT FRUSTRATED WE WOULDNT LET HER COME IN TO SEE HER MOTHER D/T COVID RULES/VISITATION HOURS. DAUGHTER REQUESTED TO SPEAK TO PT, AND PT THEN BECAME MORE AND MORE AGITATED BASED ON CONVERSATION. HAD TO RE-RELAX PT BEST POSSIBLE, AND THEN DAUGHTER PROCEEDED TO SAY "SEE, SHE'S VERY AGITATED". PT IS AGITATED AND CONFUSED, BUT BASED ON MY JUDGEMENT, PT BECAME INCREASINGLY AGITATED FROM CONVERSATION WITH DAUGHTER. RN AND NURSING SENIOR APPLICATION SECURITY CONSULTANT SPOKE ABOUT POSSIBILITY OF LETTING DAUGHTER COME IN TO SEE PT, BUT DECIDED AGAINST IT IT WOULD PROBABLY CAUSE MORE TROUBLE THAN GOOD FOR THE PT. CLINICALLY, PT IS STABLE. SATS >93% ON ROOM AIR, TELE NSR (WHEN PT DOES NOT PULL MONITOR OFF), PAIN MINIMAL, MEDICATED X1, PLUS SCHEDULED TYLENOL. INCONTINENT - ATTENDS CHANGED NEEDED. CALL LIGHT WITHIN REACH, BED IN LOWEST POSITION. WILL CONTINUE TO MONITOR. BED ALARM ON.
--- NOTE | 2020-09-11 16:43 | NUR ---
PATIENT VERY DROWSY THIS SHIFT, RESTRAINTS HAVE BEEN D/C'D AND PATIENT HAS BEEN COOPERATIVE. VSS, ON RA. VERY LITTLE PO INTAKE. INCONTINENT OF URINE, WEARING ATTENDS. ABLE TO TAKE MEDS THIS AM WITH APPLESAUCE. LUNGS CLEAR/ DIM. DAUGHTER MANE AT BEDSIDE THIS EVENING AND WANTED TO GET PATIENT UP TO A W/C AND TAKE HER FOR A WALK. ATTEMPTED TO DO THIS WITH 2 MAX ASSIST AND A GB, BUT PATIENT HAD DIFFICULTY BEARING WEIGHT AND WAS UNABLE TO TRANSFER. HR UP TO 140 WHEN ATTEMPTING TO TRANSFER, SR IN TH 70'S MOST OF THE DAY. DENIES CP OR SOB.
--- NOTE | 2020-09-12 05:26 | NUR ---
SHIFT SUMMARY PT RESTED COMFORTABLY THROUGHOUT NIGHT. APPEARED TO BE MORE ORIENTED COMPARED TO PREVIOUS NIGHT. NO RESTRAINTS OR HALDOL WAS NEEDED. PT DID NOT C/O PAIN UNLESS TURNING TO USE BEDPAN. WAS ABLE TO VERBALIZE WHEN NEEDING TO USE THE BATHROOM. DID CONVERT TO AFIB DURING ATTENDS CHANGE, BUT RN GAVE SCHEDULED METOPROLOL, AND PT CONVERTED BACK TO NSR SHORTLY AFTER. SATS >90% ON ROOM AIR. VSS. CALL LIGHT WITHIN REACH, BED IN LOWEST POSITION. WILL CONTINUE TO MONITOR.
[2020-09-12 06:37] LABS: BASOPHILS ABSOLUTE AUTO 0.03 K/mm3 (0.00-0.23); BASOPHILS PERCENT AUTO 0 % (0-2); EOSINOPHILS PERCENT AUTO 9 % (0-6); Hematocrit 21.6 % (33.0-51.0); Hemoglobin 6.7 g/dL (11.5-16.0); IMMATURE GRAN ABSOLUTE AUTO 0.06 K/mm3 (0.00-0.10); IMMATURE GRAN PERCENT AUTO 1 % (0-1); LYMPHOCYTES ABSOLUTE AUTO 2.25 K/mm3 (0.84-5.20); LYMPHOCYTES PERCENT AUTO 28 % (21-46); MONOCYTES ABSOLUTE AUTO 0.64 K/mm3 (0.16-1.47); MONOCYTES PERCENT AUTO 8 % (4-13); Mean Corpuscular HGB 28.6 pg (26.0-34.0); Mean Corpuscular Volume 92 fL (80-100); Mean Platelet Volume 9.3 fL (9.1-12.4); NEUTROPHILS PERCENT AUTO 55 % (41-73); NRBC ABSOLUTE 0.03 K/mm3 (0.00-0.02); NRBC Auto 0.4 /100 WBC (0.0-0.2); Platelet Count 198 K/mm3 (150-400); RDW Coefficient Variation 15.6 % (11.7-14.2); RDW Standard Deviation 50.6 fL (35.1-46.3); Red Blood Cell Count 2.34 M/mm3 (3.80-5.20); White Blood Cell Count 8.18 K/mm3 (4.00-11.30)
[2020-09-12 06:52] LABS: Bun/Creatinine Ratio 29.5 (12.0-20.0); Calcium, Blood 8.5 mg/dL (8.5-10.1); Creatinine, Blood 1.32 mg/dL (0.40-1.00); Potassium, Blood 3.9 mmol/L (3.5-5.5)
--- NOTE | 2020-09-12 18:34 | NUR ---
SHIFT SUMMARY: NO ACUTE CHANGES T/OUT SHIFT. PT CONTINUES ALERT AND CONFUSED, COOPERATIVE WITH CARE AND ANSWERING QUESTIONS APPROPRIATELY. NO AGITATION NOTED T/OUT DAY SHIFT, BED ALARM CONTINUES ENGAGED. PT REPOSITIONED OFTEN FOR COMFORT, BUT DENIES BEING REPOSITIONED ON SIDE. NO EPISODES OF AFIB NOTED THIS SHIFT. WILL CONTINUE TO MONITOR AND TREAT ACCORDINGLY UNTIL CHANGE OF SHIFT.
[2020-09-13 03:57] LABS: BASOPHILS ABSOLUTE AUTO 0.04 K/mm3 (0.00-0.23); BASOPHILS PERCENT AUTO 0 % (0-2); EOSINOPHILS ABSOLUTE AUTO 0.51 K/mm3 (0.00-0.68); EOSINOPHILS PERCENT AUTO 5 % (0-6); Hematocrit 23.8 % (33.0-51.0); Hemoglobin 7.4 g/dL (11.5-16.0); IMMATURE GRAN ABSOLUTE AUTO 0.07 K/mm3 (0.00-0.10); IMMATURE GRAN PERCENT AUTO 1 % (0-1); LYMPHOCYTES ABSOLUTE AUTO 2.45 K/mm3 (0.84-5.20); LYMPHOCYTES PERCENT AUTO 26 % (21-46); MONOCYTES ABSOLUTE AUTO 0.82 K/mm3 (0.16-1.47); MONOCYTES PERCENT AUTO 9 % (4-13); Mean Corpuscular HGB 28.7 pg (26.0-34.0); Mean Corpuscular HGB Conc 31.1 g/dL (31.5-36.5); Mean Corpuscular Volume 92 fL (80-100); Mean Platelet Volume 9.8 fL (9.1-12.4); NEUTROPHILS ABSOLUTE AUTO 5.56 K/mm3 (1.96-9.15); NEUTROPHILS PERCENT AUTO 59 % (41-73); NRBC ABSOLUTE 0.03 K/mm3 (0.00-0.02); NRBC Auto 0.3 /100 WBC (0.0-0.2); Platelet Count 234 K/mm3 (150-400); RDW Coefficient Variation 15.7 % (11.7-14.2); RDW Standard Deviation 51.6 fL (35.1-46.3); Red Blood Cell Count 2.58 M/mm3 (3.80-5.20); White Blood Cell Count 9.45 K/mm3 (4.00-11.30)
[2020-09-13 04:17] LABS: Albumin, Blood 2.4 g/dL (3.4-5.0); Anion Gap 6 mmol/L (6-16); Blood Urea Nitrogen 36 mg/dL (8-24); CO2, Blood 26 mmol/L (21-32); Calcium, Blood 8.5 mg/dL (8.5-10.1); Chloride, Blood 115 mmol/L (98-108); Glomerular Filtration Rate 46 (60-); Glucose, Blood 105 mg/dL (70-99); Phosphorus, Blood 2.4 mg/dL (2.5-4.9); Potassium, Blood 4.1 mmol/L (3.5-5.5); Sodium, Blood 147 mmol/L (136-145)
--- NOTE | 2020-09-13 04:55 | NUR ---
SHIFT SUMMARY PATIENT IS ALERT AND ORIENTED TO SELF ONLY. TWO PERSON ASSIST WITH Q2 HOURS BRIEF CHANGE AND TURNING. PATIENT USED BEDPAN ONCE. DOES NOT USE CALL LIGHT APROPRIATELY. PATIENT SLEPT MOST THE NIGHT. PATIENTS HR INCREASES TO THE 130s WITH ACTIVITY, VSS, OTHERWISE. 02 SATS >95% ON RA. CALL LIGHT IN REACH. BED ALARM ON.
[2020-09-13 11:04] LABS: Stool Occult Blood Guaiac 1 Pos (Neg)
--- NOTE | 2020-09-13 17:54 | NUR ---
SHIFT SUMMARY: STATUS CHANGE TO MEDICAL W/TELE. PT CONTINUES ALERT AND CONFUSED, COOPERATIVE WITH CARE, MAINTAINS O2 SATS >95% ON ROOM AIR, SR W/PVC ON MONITOR. PHYSICAL THERAPY ATTEMPTED TO GET PT OOB, PER THERAPY PT WAS ASSISTED TO SIDE OF BED AND WAS NOT ABLE TO STAND UP, HR INCREASED TO 140'S, RETURNS TO BASELINE UPON RETURN TO BED. PT CONTINUES WITH DECREASED APPETITE, WILL DRINK CHOCOLATE AND [place]ARRIG[place] ENSURE REGULARLY. NEW IV PLACED TO RT WRIST, PT TOLERATES WELL, FLUIDS INFUSING WITHOUT DIFFICULTY. LAB RESULTS SHOW POSITIVE GUAIC, DR SCHULTE CONSULTATION HAS BEEN CALLED IN. WILL CONTINUE TO MONITOR AND TREAT ACCORDINGLY UNTIL CHANGE OF SHIFT.
[2020-09-14 04:00] LABS: Influenza A, PCR Negative (NEGATIVE); Influenza B, PCR Negative (NEGATIVE); Resp Syncytial Virus, PCR Negative (NEGATIVE); SARS-Cov-2 (COVID-19) PCR, MMC Negative (NEGATIVE)
--- NOTE | 2020-09-14 04:24 | NUR ---
SHIFT SUMMARY PATIENT IS ALERT AND ORIENTED TO SELF ONLY, COOPERATIVE WITH CARE. Q2 HOURS REPOSITIONING, PATIENT USES BEDPAN, INCONTINENT AT TIMES. STOOL SOFT AND BROWN. PATIENT REPORTS PAIN WITH ROLLING BUT IS PAIN FREE OTHERWISE. DR. TANG IN TO SEE PATIENT, EGD PLANNED FOR 09/14. COVID SWAB DONE. 02 SATS >92% ON RA. VSS, NO ACUTE CHANGES. CALL LIGHT IN REACH, BED IN LOWEST POSITION, BED ALARM ON.
[2020-09-14 04:51] LABS: BASOPHILS ABSOLUTE AUTO 0.04 K/mm3 (0.00-0.23); BASOPHILS PERCENT AUTO 0 % (0-2); EOSINOPHILS ABSOLUTE AUTO 0.73 K/mm3 (0.00-0.68); EOSINOPHILS PERCENT AUTO 8 % (0-6); Hemoglobin 7.4 g/dL (11.5-16.0); IMMATURE GRAN ABSOLUTE AUTO 0.05 K/mm3 (0.00-0.10); IMMATURE GRAN PERCENT AUTO 1 % (0-1); LYMPHOCYTES ABSOLUTE AUTO 2.99 K/mm3 (0.84-5.20); LYMPHOCYTES PERCENT AUTO 33 % (21-46); MONOCYTES ABSOLUTE AUTO 0.63 K/mm3 (0.16-1.47); MONOCYTES PERCENT AUTO 7 % (4-13); Mean Corpuscular HGB 28.6 pg (26.0-34.0); Mean Corpuscular HGB Conc 30.8 g/dL (31.5-36.5); Mean Corpuscular Volume 93 fL (80-100); Mean Platelet Volume 9.9 fL (9.1-12.4); NEUTROPHILS ABSOLUTE AUTO 4.59 K/mm3 (1.96-9.15); NEUTROPHILS PERCENT AUTO 51 % (41-73); Platelet Count 265 K/mm3 (150-400); RDW Coefficient Variation 16.1 % (11.7-14.2); RDW Standard Deviation 51.8 fL (35.1-46.3); Red Blood Cell Count 2.59 M/mm3 (3.80-5.20); White Blood Cell Count 9.03 K/mm3 (4.00-11.30)
[2020-09-14 05:14] LABS: Albumin, Blood 2.3 g/dL (3.4-5.0); Anion Gap 7 mmol/L (6-16); Blood Urea Nitrogen 29 mg/dL (8-24); Bun/Creatinine Ratio 26.6 (12.0-20.0); CO2, Blood 23 mmol/L (21-32); Calcium, Blood 8.2 mg/dL (8.5-10.1); Chloride, Blood 114 mmol/L (98-108); Creatinine, Blood 1.09 mg/dL (0.40-1.00); Glomerular Filtration Rate 51 (60-); Glucose, Blood 101 mg/dL (70-99); Phosphorus, Blood 2.6 mg/dL (2.5-4.9); Sodium, Blood 144 mmol/L (136-145)
--- NOTE | 2020-09-14 07:14 | NUR ---
ASSUMED CARE: PT RESTING QUIETLY AT THIS TIME. TELE SHOWS NSR. NO ACUTE NEEDS AT THIS TIME.
--- NOTE | 2020-09-14 18:06 | NUR ---
PT AWAKE AND ALERT THIS AM, CONFUSED AND ORIENTED TO SELF ONLY. PHYSICAL THERAPY IN TO WORK WITH PT, GOT PT UP TO RECLINER CHAIR. PT SAT UP IN RECLINER CHAIR FOR OVER AN HOUR AND THEN WAS ASSISTED BACK TO BED. PT APPEARED TO BE NAPPING, RESPIRATIONS EVEN AND UNLABORED, BED ALARM ON. PT'S DTR MANE AT BEDSIDE. AWAITING EGD PROCEDURE SLATED FOR THIS EVENING PER DAY SURGERY STAFF.
--- NOTE | 2020-09-14 22:17 | NUR ---
PATIENT ALERT AND ORIENTED TO SELF ONLY . PATIENT CALM AND COOPERATIVE WITH CARE. Q2 HOUR TURNS. 02 SATS >95% ON RA. PATIENT LEFT FOR EGD @5306.
--- NOTE | 2020-09-14 22:24 | NUR ---
PATIENT ALERT, ORIENTED TO SELF AND LOCATION. FORGETTFUL AND POOR HISTORIAN. VERIFIED NPO STATUS WITH PATIENT'S NURSE. Lungs clear T/O to Auscultation.
--- NOTE | 2020-09-14 22:57 | NUR ---
09/14/20 1928 MattieFlorecita funez Aubrey History, Chart, Medications and Allergies reviewed before start of procedure.Patient confirms NPO status and agrees with scheduled surgery.EKG O2 VIA N/C INTACT THROUGHOUT SEDATION/PROCEDURE. MONITOR INTACT WITH CONTINUOUS PULSE OXIMETRY AND INTERMITTENT BP.PATIENT DETERMINED TO BE ASA APPROPRIATE FOR PROPOFOL SEDATION PRIOR TO START OF PROCEDURE BY
--- NOTE | 2020-09-14 23:50 | NUR ---
PATIENT TO ROOM FROM DAY SURGERY @2340, PATIENT LETHARGIC AND MUMBLES WHEN SPOKEN TOO. VSS, 02 SATS >94% ON RA. WILL CONTINUE TO MONITOR. RECIEVED REPORT FROM ADRIANO MILLER, REPORTED TO ME THAT DAUGHTER WAS CONTACTED AFTER PROCEDURE AND WANTS THE PATIENT TO BE A FULL CODE AND WAS EXPLAINED WHAT THAT MEANT. CALLED HOSPITALIST AND PATIENT CHANGED TO FULL CODE.
[2020-09-15 03:59] LABS: BASOPHILS ABSOLUTE AUTO 0.03 K/mm3 (0.00-0.23); BASOPHILS PERCENT AUTO 0 % (0-2); EOSINOPHILS ABSOLUTE AUTO 0.46 K/mm3 (0.00-0.68); EOSINOPHILS PERCENT AUTO 6 % (0-6); Hematocrit 21.9 % (33.0-51.0); Hemoglobin 6.6 g/dL (11.5-16.0); IMMATURE GRAN ABSOLUTE AUTO 0.03 K/mm3 (0.00-0.10); IMMATURE GRAN PERCENT AUTO 0 % (0-1); LYMPHOCYTES ABSOLUTE AUTO 2.07 K/mm3 (0.84-5.20); LYMPHOCYTES PERCENT AUTO 28 % (21-46); MONOCYTES ABSOLUTE AUTO 0.53 K/mm3 (0.16-1.47); MONOCYTES PERCENT AUTO 7 % (4-13); Mean Corpuscular HGB 28.7 pg (26.0-34.0); Mean Corpuscular HGB Conc 30.1 g/dL (31.5-36.5); Mean Corpuscular Volume 95 fL (80-100); Mean Platelet Volume 9.9 fL (9.1-12.4); NEUTROPHILS ABSOLUTE AUTO 4.42 K/mm3 (1.96-9.15); NEUTROPHILS PERCENT AUTO 59 % (41-73); Platelet Count 245 K/mm3 (150-400); RDW Coefficient Variation 16.5 % (11.7-14.2); RDW Standard Deviation 54.8 fL (35.1-46.3); White Blood Cell Count 7.54 K/mm3 (4.00-11.30)
[2020-09-15 04:19] LABS: Albumin, Blood 2.1 g/dL (3.4-5.0); Anion Gap 6 mmol/L (6-16); Blood Urea Nitrogen 21 mg/dL (8-24); Bun/Creatinine Ratio 21.9 (12.0-20.0); CO2, Blood 23 mmol/L (21-32); Calcium, Blood 7.9 mg/dL (8.5-10.1); Chloride, Blood 117 mmol/L (98-108); Creatinine, Blood 0.96 mg/dL (0.40-1.00); Glomerular Filtration Rate 60 (60-); Glucose, Blood 95 mg/dL (70-99); Phosphorus, Blood 2.7 mg/dL (2.5-4.9); Potassium, Blood 3.7 mmol/L (3.5-5.5); Sodium, Blood 146 mmol/L (136-145)
--- NOTE | 2020-09-15 04:25 | NUR ---
SHIFT SUMMARY PATIENT IS ALERT AND ORIENTED TO SELF. REPOSITIONED IN BED, BRIEF IS DRY. PATIENT WATCHING TV. VSS, NO ACUTE CHANGES. 02 SATS >93% ON RA. PATIENTS Hgb 6.6, CALLED HOSPITALIST, REDRAW AT NOON. CALL LIGHT IN REACH, BED IN LOWEST POSITION, BED ALARM ON.
--- NOTE | 2020-09-15 07:22 | NUR ---
Report received from NOC shift RN. Pt resting in bed at this time. Bed alarm on and call light in reach. No needs identified.
--- NOTE | 2020-09-15 11:15 | NUR ---
PRIOR TO STARTING BLOOD TRANSFUSION, PT'S SPO2 NOTED TO BE 87-88% CONSISTANTLY WHILE PT APPEARS TO BE SLEEPING. PT PLACED ON 2L O2 VIA NC, SPO2 INCREASED TO 90-92%.
--- NOTE | 2020-09-15 12:20 | NUR ---
PRBCs INFUSING AT THIS TIME, NO S/SX OF TRANSFUSION REACTION. PT'S DTR MANE UPDATED ON PT'S PROGRESS AT THIS TIME. NO ISSUES OR NEEDS IDENTIFIED. WILL CONTINUE TO MONITOR TRANSFUSION.
[2020-09-15 15:36] LABS: Hematocrit 29.1 % (33.0-51.0); Hemoglobin 8.9 g/dL (11.5-16.0)
--- NOTE | 2020-09-15 15:39 | NUR ---
REPORT GIVEN TO STACY OH. PT TRANSFERRED TO 355 WITH ALL HER BELONGINGS. THIS RN CALLED DTR MANE @ [phone], NO ANSWER AND NO VM AVAILABLE.
--- NOTE | 2020-09-15 15:59 | NUR ---
1545 ASSUMED CARE OF PT. PT BROUGHT UP TO UNIT IN RECLINER. SHE IS ALERT AND ORIENTED TO SELF. PT IS PLEASANT AND HAS NO COMPLAINTS. CALL LIGHT WITHIN REACH. NURSE TO NURSE WITH JIM FROM PCU.
--- NOTE | 2020-09-15 17:17 | NUR ---
PT TRANSFERRED FROM PCU. ALERT TO SELF. DAUGHTER AT BEDSIDE. PT ADJUSTED ACCORDING TO WISHES. CALL LIGHT WITHIN REACH, BED ALARM ON. WILL CONTINUE TO MONITOR.
--- NOTE | 2020-09-15 19:28 | NUR ---
AWAKE, WATCHING TV. DENIED PAIN OR DISTRESS AT THIS TIME. CALL LIGHT IN REACH. SMILING. ASKED FOR AND RECEIVED CUP OF ICE WATER.
--- NOTE | 2020-09-15 21:10 | NUR ---
DR SCHULTE IN TO SEE PT. WILL MONITOR FOR ANY SIGNS OF GI BLEEDING (HAD LOW HGB).
[2020-09-16 04:34] LABS: BASOPHILS ABSOLUTE AUTO 0.04 K/mm3 (0.00-0.23); BASOPHILS PERCENT AUTO 1 % (0-2); EOSINOPHILS ABSOLUTE AUTO 0.56 K/mm3 (0.00-0.68); EOSINOPHILS PERCENT AUTO 7 % (0-6); Hematocrit 26.3 % (33.0-51.0); Hemoglobin 8.5 g/dL (11.5-16.0); IMMATURE GRAN ABSOLUTE AUTO 0.03 K/mm3 (0.00-0.10); IMMATURE GRAN PERCENT AUTO 0 % (0-1); LYMPHOCYTES ABSOLUTE AUTO 2.38 K/mm3 (0.84-5.20); LYMPHOCYTES PERCENT AUTO 29 % (21-46); MONOCYTES PERCENT AUTO 7 % (4-13); Mean Corpuscular HGB 30.2 pg (26.0-34.0); Mean Corpuscular HGB Conc 32.3 g/dL (31.5-36.5); Mean Corpuscular Volume 94 fL (80-100); Mean Platelet Volume 9.4 fL (9.1-12.4); NEUTROPHILS ABSOLUTE AUTO 4.73 K/mm3 (1.96-9.15); NEUTROPHILS PERCENT AUTO 57 % (41-73); Platelet Count 229 K/mm3 (150-400); RDW Coefficient Variation 15.9 % (11.7-14.2); RDW Standard Deviation 51.1 fL (35.1-46.3); Red Blood Cell Count 2.81 M/mm3 (3.80-5.20); White Blood Cell Count 8.34 K/mm3 (4.00-11.30)
[2020-09-16 04:51] LABS: Anion Gap 7 mmol/L (6-16); Blood Urea Nitrogen 17 mg/dL (8-24); Bun/Creatinine Ratio 17.7 (12.0-20.0); CO2, Blood 21 mmol/L (21-32); Calcium, Blood 7.9 mg/dL (8.5-10.1); Chloride, Blood 120 mmol/L (98-108); Creatinine, Blood 0.96 mg/dL (0.40-1.00); Glomerular Filtration Rate 59 (60-); Glucose, Blood 97 mg/dL (70-99); Phosphorus, Blood 2.7 mg/dL (2.5-4.9); Potassium, Blood 3.7 mmol/L (3.5-5.5); Sodium, Blood 148 mmol/L (136-145)
--- NOTE | 2020-09-16 05:08 | NUR ---
LEARN TO SWIM INSTRUCTOR SUMMARY ASSUMED CARE OF PT SENIOR CARE THROUGH SHIFT. PT AAOX2, PLEASANT BUT CONFUSED AND FORGETFUL AT TIMES. PT HAD SMALL BM THAT WAS BROWN IN COLOR, NO BLOOD NOTED. HGB STABLE THIS AM AT 8.[address] SCHULTE IN TO SEE PT AT START OF SHIFT AND MENTIONED IN PROGRESS NOTE THAT PT REFUSES COLONOSCOPY. VSS, WILL CONTINUE TO MONITOR.
[2020-09-16] MEDS ORDERED: ACET325 PO (11:38)
[2020-09-16] MEDS ORDERED: BISA10S PR (11:39)
[2020-09-16] MEDS ORDERED: DOCU100 PO (11:40)
[2020-09-16] MEDS ORDERED: Vitamin B-121000 MCG PO (11:40)
[2020-09-16] MEDS ORDERED: ONDA4ODT MM (11:41)
[2020-09-16] MEDS ORDERED: FOLI1 PO (11:41)
--- NOTE | 2020-09-16 13:10 | NUR ---
DISCHARGE INSTRUCTIONS GIVEN TO THE PATIENT. ALL QUESTIONS ANSWERED. IV AND TELE REMOVED. MEAL PACKER ODILON WORKING ON FINDING TRANSPORTATION HOME.
--- NOTE | 2020-09-16 14:51 | NUR ---
JUST GOT A CALL FROM Reina BAGLEY/Candido SUBSTATION DESIGNER. W/C VAN TO COME AND TRANSPORT PATIENT HOME AT 1600.
--- NOTE | 2020-09-16 16:06 | NUR ---
PATIENT PICKED UP BY WHEEL CHAIR VAN FOR DISCHARGE HOME. DAUGHTER CAME TO THE HOSPITAL PRIOR TO PATIENT DISCHARGING AND WAS VERY UPSET THAT NO ONE HAD COME TO THE ROOM TO GO OVER DISCHARGE PAPERWORK WITH HER. I EXPLAINED TO HER THAT I DID NOT KNOW SHE WAS IN THE ROOM AND DID NOT EVEN EXPECT HER TO SHOW AT THE HOSPITAL THE PATIENT WAS DISCHARGING HOME VIA W/C VAN. SHE WAS NOT VERY UNDERSTANDING AND STAND-OFFISH. PATIENT DISCHARGED HOME AT 1605.
== END 2020-09-16 16:07 | DRG 552 ==
LOC: ER 17:59 → MEDS 18:00 → PCU 09-09 15:41 → MEDS 09-09 15:41 → PCU 09-09 19:29 → MEDS 09-15 15:43
PROVIDERS: Family Medicine; Internal Medicine; Internal Medicine Gastroenterology; Nurse Practitioner Acute Care; Physician Assistant; ADMIT Internal Medicine
PROC: 0DJ08ZZ Inspection of Upper Intestinal Tract, Via Natural or Artificial Opening Endoscopic (ICD-10-PCS; principal; 2020-09-14 19:00)
PROC: 30233N1 Transfusion of Nonautologous Red Blood Cells into Peripheral Vein, Percutaneous Approach (ICD-10-PCS; 2020-09-14 19:00)
DX: S32.10XA Unspecified fracture of sacrum, initial encounter for closed fracture (principal); N17.9 Acute kidney failure, unspecified; S32.591A Other specified fracture of right pubis, initial encounter for closed fracture; S32.059A Unspecified fracture of fifth lumbar vertebra, initial encounter for closed fracture; M62.82 Rhabdomyolysis; Z20.822 Contact with and (suspected) exposure to COVID-19; Z95.1 Presence of aortocoronary bypass graft; I25.2 Old myocardial infarction; E78.5 Hyperlipidemia, unspecified; F03.90 Unspecified dementia, unspecified severity, without behavioral disturbance, psychotic disturbance, mood disturbance, and anxiety; I25.10 Atherosclerotic heart disease of native coronary artery without angina pectoris; I48.91 Unspecified atrial fibrillation; I73.9 Peripheral vascular disease, unspecified; I12.9 Hypertensive chronic kidney disease with stage 1 through stage 4 chronic kidney disease, or unspecified chronic kidney disease; N18.30 Chronic kidney disease, stage 3 unspecified; Z95.5 Presence of coronary angioplasty implant and graft; W19.XXXA Unspecified fall, initial encounter; Z85.048 Personal history of other malignant neoplasm of rectum, rectosigmoid junction, and anus; Z66 Do not resuscitate; D63.1 Anemia in chronic kidney disease; I95.9 Hypotension, unspecified
CPT/HCPCS: 0241U; 36415; 36430; 51702; 70450; 71045; 72192; 73522; 74176; 80048; 80053; 80069; 81001; 82272; 82550; 82607; 82728; 82746; 82803; 82947; 83540; 83550; 83735; 85014; 85018; 85025; 86850; 86900; 86901; 86923; 87086; 93005; 93010; 96372; 96374; 97110; 97162; 97530; 99285-25; A9270; G0378; J0881; J1170; J1200; J1630; J1650; J2250; J2704; J3010; J7030; J7120; P9016

== ENCOUNTER 2021-01-03 00:03 | Inpatient (IN) | payer OTHER, MEDICARE ==
[~2021-01-03] VITALS: Ht 157.5 cm; Wt 63.8 kg
[~2021-01-03 00:03] MED LIST changes: +ACET325 PO; +BISA10S PR; +FOLI1 PO; +ONDA4ODT MM; +Vitamin B-121000 MCG PO
[2021-01-03 00:34] LABS: Source, Urine Catheter
[2021-01-03 00:38] LABS: BASOPHILS ABSOLUTE AUTO 0.04 K/mm3 (0.00-0.23); BASOPHILS PERCENT AUTO 0 % (0-2); EOSINOPHILS ABSOLUTE AUTO 0.08 K/mm3 (0.00-0.68); EOSINOPHILS PERCENT AUTO 1 % (0-6); Hematocrit 30.5 % (33.0-51.0); Hemoglobin 9.5 g/dL (11.5-16.0); IMMATURE GRAN ABSOLUTE AUTO 0.09 K/mm3 (0.00-0.10); IMMATURE GRAN PERCENT AUTO 1 % (0-1); LYMPHOCYTES ABSOLUTE AUTO 3.13 K/mm3 (0.84-5.20); LYMPHOCYTES PERCENT AUTO 21 % (21-46); MONOCYTES ABSOLUTE AUTO 0.62 K/mm3 (0.16-1.47); MONOCYTES PERCENT AUTO 4 % (4-13); Mean Corpuscular HGB 29.5 pg (26.0-34.0); Mean Corpuscular HGB Conc 31.1 g/dL (31.5-36.5); Mean Corpuscular Volume 95 fL (80-100); Mean Platelet Volume 11.9 fL (9.1-12.4); NEUTROPHILS ABSOLUTE AUTO 10.67 K/mm3 (1.96-9.15); NEUTROPHILS PERCENT AUTO 73 % (41-73); Platelet Count 257 K/mm3 (150-400); RDW Coefficient Variation 17.4 % (11.7-14.2); RDW Standard Deviation 60.8 fL (35.1-46.3); Red Blood Cell Count 3.22 M/mm3 (3.80-5.20); White Blood Cell Count 14.63 K/mm3 (4.00-11.30)
[2021-01-03 00:44] LABS: Blood, Urine Neg (Neg); Glucose Qualitative, Urine Neg (Neg); Ketones, Urine Neg (Neg); Leukocyte Esterase, Urine Neg (Neg); Nitrite, Urine Neg (Neg); Protein, Urine Neg (Neg); Specific Gravity, Urine 1.025 (1.003-1.022); Urobilinogen, Urine NORM (Normal)
[2021-01-03 00:54] LABS: Appearance, Urine Hazy (Clear); Bilirubin, Urine 1+ (Neg); Color, Urine Yellow (P-Yellow); White Blood Cells, Urine Not Seen /hpf (0-5)
[2021-01-03 00:55] LABS: Amorphous Heavy (0-Heavy); Bacteria Few /hpf; Red Blood Cells, Urine Not Seen /hpf (0-2); Squamous Epithelial Cells Many /hpf (Few)
[2021-01-03 00:55] LABS: Magnesium, Blood 2.6 mg/dL (1.6-2.4); Troponin I 0.17 ng/mL (0.000-0.040)
[2021-01-03 00:58] LABS: Albumin, Blood 3.1 g/dL (3.4-5.0); Albumin/Globulin Ratio 0.7 (0.8-1.8); Bilirubin, Total 0.3 mg/dL (0.1-1.0); Bun/Creatinine Ratio 14.5 (12.0-20.0); Calcium, Blood 10.2 mg/dL (8.5-10.1); Creatinine, Blood 13.3 mg/dL (0.40-1.00); Globulin, Blood 4.6 g/dL (2.2-4.0); Potassium, Blood 5.5 mmol/L (3.5-5.5); Total Protein, Blood 7.7 g/dL (6.4-8.2)
[2021-01-03 02:16] LABS: SARS-Cov-2 (COVID-19) PCR, MMC NEGATIVE (NEGATIVE)
--- NOTE | 2021-01-03 07:23 | NUR ---
SHIFT SUMMARY PT ADMITTED FROM ER, TX TO ICU BED VIA SLIDER SHEET. PT ALERT TO PERSON AND FAMILY WHICH IS NORMAL FOR PT PER CAREGIVER/DAUGHTER. PT HAS UNDERLYING DEMENTIA. UPON ARRIVAL 2ND LITER OF NORMAL SALINE WAS FINISHING, 3RD LITER INITIATED AND BOLUSED BY THIS NURSE. PT HYPOTENSIVE, LEVOPHED GTT INITIATED VIA CENTRAL LINE AND TITRATED UP TO 14MCG TO MAINTAIN A MAP>65. NSR ON THE RN FIRST ASSIST. TEMP SHARPE CATH PATENT, DRAINING YELLOW URINE. REPORT TO ONCOMING NURSE.
[2021-01-03 07:46] LABS: PCO2 Arterial 17.2 mmHg (35-45); PO2 Arterial 86.9 mmHg (80-100); pH Blood Arterial 7.24 (7.35-7.45)
[2021-01-03 08:37] LABS: Stool Occult Blood Guaiac 1 Pos (Neg)
[2021-01-03 09:13] LABS: Hematocrit 25.6 % (33.0-51.0)
[2021-01-03 10:10] LABS: Campylobacter Sp Not Detected (NOT DETECT)
[2021-01-03 10:11] LABS: Adenovirus F 40/41 Not Detected (NOT DETECT); Astrovirus Not Detected (NOT DETECT); Cryptosporidium Not Detected (NOT DETECT); Cyclospora Cayetanensis Not Detected (NOT DETECT); E. Coli O157 Not Detected (NOT DETECT); Entamoeba Histolytica Not Detected (NOT DETECT); Enteroaggregative E. coli-EAEC Not Detected (NOT DETECT); Enteropathogenic E. coli-EPEC Not Detected (NOT DETECT); Enterotoxigenic E. coli-ETEC Not Detected (NOT DETECT); Giardia Lamblia Not Detected (NOT DETECT); Norovirus GI/GII Not Detected (NOT DETECT); Plesiomonas Shigelloides Not Detected (NOT DETECT); Rotavirus A Not Detected (NOT DETECT); Salmonella Sp Not Detected (NOT DETECT); Sapovirus Not Detected (NOT DETECT); Shiga Toxin-prod E. coli-STEC Not Detected (NOT DETECT); Shigella/Enteroin E. coli-EIEC Not Detected (NOT DETECT); Vibrio Cholerae Not Detected (NOT DETECT); Vibrio Sp Not Detected (NOT DETECT); Yersinia Enterocolitica Not Detected (NOT DETECT)
--- NOTE | 2021-01-03 12:22 | NUR ---
CARE ASSUMED ASSESSMENTS COMPLETED, PT ALERT, ORIENTED TO SELF ONLY, THIS IS BASELINE ACCORDING TO REPORT. LS CLEAR, SPO2 MID 90'S ON RA, NO COUGH NOTED. HR 80'S-90'S SINUS, LEVOPHED AT 14MCG/KG/MIN TO KEEP MAP >65, INFUSING VIA CL TO L IJ. NS 150ML/HR INFUSION CLARIFIED WITH DR. GALEANO AND INITIATED. DR. AKANKSHA MAGDALENO TO ASSESS, ABG RESULTS RECEIVED, AWARE. NEW ORDERS, 1 AMP BICARB ADMINISTERED, BICARB IFUSING AT 100ML/HR, PROTONIX GTT AT 10ML/HR. ABD SOFT, SEEMS TENDER TO PALPATION, HOWEVER PT SAYS "OW" TO ANY TOUCH. BT HYPOACTIVE, PT HAD A SMALL, MUCUOSY BM THAT WAS BROWN WITH BLOODY STREAKS. SPECIMEN SENT TO LAB, NEGATIVE FOR CDIFF, POSITIVE FOR BLOOD. PT C/O NAUSEA, NO VOMITING, MEDICATED WTIH ZOFRAN. PPP FAINT IN ALL EXTREMS, NO EDEMA NOTED. SHARPE PATENT AND DRAINING SMALL AMOUNTS OF CLEAR YELLOW URINE, URINE PLACED ON ICE FOR 24 HR URINE SPECIMEN. MEPILEX TO COCCYX CDI. DR. ERIS MAGDALENO FOR CONSULT, IS AWARE OF PT'S C/O AND OF STOOL APPEARANCE. NO NEW ORDERS AT THIS TIME. CT COMPLETED, PT NOW RESTING IN BED, REFUSING MEALS BUT TOLERATING PO MEDS WELL WITH WATER.
[2021-01-03 13:31] LABS: Hematocrit 23.1 % (33.0-51.0); Hemoglobin 7.3 g/dL (11.5-16.0)
[2021-01-03 13:33] LABS: Albumin, Blood 2.2 g/dL (3.4-5.0); Anion Gap 18 mmol/L (6-16); Blood Urea Nitrogen 163 mg/dL (8-24); Bun/Creatinine Ratio 16.3 (12.0-20.0); CO2, Blood 14 mmol/L (21-32); Calcium, Blood 8.1 mg/dL (8.5-10.1); Chloride, Blood 113 mmol/L (98-108); Glomerular Filtration Rate 4 (60-); Glucose, Blood 220 mg/dL (70-99); Phosphorus, Blood 6.1 mg/dL (2.5-4.9); Potassium, Blood 4.4 mmol/L (3.5-5.5); Sodium, Blood 145 mmol/L (136-145)
--- NOTE | 2021-01-03 15:07 | NUR ---
UPDATE ABD CT COMPLETED, PT REFUSED LUNCH, REMAINS CONFUSED BUT COOPERATIVE. DAUGHTER MANE UPDATED, PT MADE "CONFIDENTIAL" PER NEXT OF KIN MANE'S REQUEST. CODE WORD "NEAL." ECHO COMPLETED, PT REMAINS ON LEVOPHED 13MCG.
--- NOTE | 2021-01-03 19:27 | NUR ---
END OF SHIFT UNABLE TO TITRATE LEVO DOWN TODAY, THEN THIS EVENING LEVO REQUIREMENTS BEGAN TO INCREASE, LEVO AT MAX AT THIS TIME, AWAITING VASO FROM PHARMACY. PT REMAINS ALERT, CONFUSED BUT MENTATION NO DIFFERENT FROM THIS AM. PULSES WEAK IN ALL EXTREMS, HR REMAINS 80'S-90'S SINUS WITH OCCASIONAL PVC'S. EXTREMS COOL TO TOUCH, CORE WARM, SKIN REMAINS PALE. DR. HERNÁNDEZ CONSULTED, AT BEDSIDE AT THIS TIME. PT HAD 3 SMALL BM'S THIS SHIFT WITH SMALL AMOUNT OF RED STREAKING, OTHERWISE BROWN, NO EMESIS. APPETITE POOR. LS REMAIN CLEAR, PT ON RA. URINE OUTPUT INCREASED THIS EVENING, TOTAL URINE OUTPUT >600ML THIS SHIFT. REPORT TO ONCOMING SHIFT.
--- NOTE | 2021-01-03 20:30 | NUR ---
SHIFT ASSESSMENT ASSUMED CARE OF PT @ 1900. REPORT RECEIVED FROM ADRIANO MIRANDA. PT ALERT TO PERSON. MARY. LS CLEAR. HR 80'S-90'S. LEVOPHED @ 20MCG/MIN AND VASOPRESSIN @ 0/04 U/MIN INFUSING INTO CENTRAL LINE, MAP >65. PT DENIES NAUSEA. MULTIPLE LOOSE STOOLS TODAY, ONE DURING ASSESSMENT. TEMP SHARPE CATH PATENT, 24HR URINE IN PROGRESS, SHARPE BAG ON ICE. WILL CONTINUE TO MONITOR CLOSELY.
[2021-01-04 04:44] LABS: Hematocrit 19.2 % (33.0-51.0); Hemoglobin 6.4 g/dL (11.5-16.0); Mean Corpuscular HGB 29.5 pg (26.0-34.0); Mean Corpuscular HGB Conc 33.3 g/dL (31.5-36.5); Mean Platelet Volume 11.2 fL (9.1-12.4); Platelet Count 164 K/mm3 (150-400); RDW Coefficient Variation 17.4 % (11.7-14.2); RDW Standard Deviation 56.3 fL (35.1-46.3); Red Blood Cell Count 2.17 M/mm3 (3.80-5.20); White Blood Cell Count 9.89 K/mm3 (4.00-11.30)
[2021-01-04 04:45] LABS: Mean Corpuscular Volume 89 fL (80-100)
[2021-01-04 05:02] LABS: Alanine Aminotransfer (ALT/SGP 13 U/L (12-78); Albumin, Blood 1.9 g/dL (3.4-5.0); Alk Phos 52 U/L (50-136); Anion Gap 12 mmol/L (6-16); Aspartate Aminotrans (AST/SGOT 35 U/L (12-37); Bilirubin, Direct <0.1 mg/dL (0.0-0.3); Bilirubin, Total 0.2 mg/dL (0.1-1.0); Blood Urea Nitrogen 123 mg/dL (8-24); Bun/Creatinine Ratio 17.4 (12.0-20.0); CO2, Blood 22 mmol/L (21-32); CPK Creatine Kinase 134 U/L (26-193); Calcium, Blood 6.9 mg/dL (8.5-10.1); Chloride, Blood 107 mmol/L (98-108); Creatinine, Blood 7.05 mg/dL (0.40-1.00); Glomerular Filtration Rate 6 (60-); Glucose, Blood 249 mg/dL (70-99); Magnesium, Blood 1.3 mg/dL (1.6-2.4); Phosphorus, Blood 3.5 mg/dL (2.5-4.9); Sodium, Blood 141 mmol/L (136-145); Uric Acid, Blood 8.6 mg/dL (2.6-6.0)
[2021-01-04 06:04] LABS: Albumin/Globulin Ratio 0.7 (0.8-1.8); Bilirubin, Indirect Unable to Calculate mg/dL (0.1-0.7); Globulin, Blood 2.8 g/dL (2.2-4.0); Total Protein, Blood 4.7 g/dL (6.4-8.2)
--- NOTE | 2021-01-04 07:01 | NUR ---
SHIFT SUMMARY PT REMAINS ALERT TO PERSON, NO CHANGES IN MENTAL STATUS. SOFT BILATERAL WRIST RESTRAINTS IN PLACE DUE TO PT PULLING AT CENTRAL LINE. VASOPRESSIN AND LEVOPHED CONTINUE, MAP MAINTAINING ~65. AM LABS RESULTED LOW K+, MG, AND HEMOGLOBIN. K+ AND MG CURRENTLY INFUSING, AWAITING BLOOD. LS REMAIN CLEAR, 02 SATS >90% ON RA. TEMP SHARPE CATH DRAINING YELLOW URINE, ON ICE FOR 24 HR URINE. MULTIPE SMALL, LOOSE, DARK COLORED STOOLS. REPORT GIVEN TO ONCOMING NURSE.
[2021-01-04 09:11] LABS: Protein, Urine Quantitative 32.6 mg/dL (0.0-11.9)
--- NOTE | 2021-01-04 12:00 | NUR ---
REASSESSMENT 1 PRBC INFUSED. LEVOPHED AT 20MCG/MIN, VASOPRESSIN AT 0.04 UNITS/MIN AND MARIANNE-SYNEPHRINE AT 30MCG/MIN INTO CENTRAL LINE. URINARY OUTPUT ADEQUATE. PATIENT ALERT AND ORIENTED TO SELF. PATIENT HAD 1 SMALL JELLY BROWN WITH RED TINGE BM. HR IS SINUS TACH AT 102. FEBRILE AT 99.7. 91% ON RA WHILE ASLEEP, MID 90S WHILE AWAKE.
[2021-01-04 13:13] LABS: Hematocrit 25.8 % (33.0-51.0); Hemoglobin 8.5 g/dL (11.5-16.0)
--- NOTE | 2021-01-04 16:39 | NUR ---
Request to talk to pt's family in ICU 7. Met with pt's daughter Trice. She was sitting at the bedside, talking to her mom, who stated to Trice,"I want to go home with you. Take me home". Trice attempted to explain to her mom that she needed to stay in the hospital for the time being, and she would keep an eye on her. I asked Trice if we could take a short walk, and she agreed to that. We talked about pt's life, including when she lost her spouse, Trice's dad. Trice has unpleasant memories of her dad on hospice. Trcie remembers being the one who gave him his last dose of pain medication, even though she does then state she knows she did the right thing to keep him comforable.
--- NOTE | 2021-01-04 17:15 | NUR ---
SHIFT SUMMARY PATIENT REMAINS ALERT AND ORIENTED TO SELF. LEVOPHED AT 20MCG/MIN, VASOPRESSIN AT 0.04 UNITS/MIN AND MARIANNE-SYNEPHRINE AT 30MCG/MIN INTO CENTRAL LINE. URINARY OUTPUT AT BEEN ADEQUATE HOURLY. PATIENT HAD 2 SMALL JELLY BROWN, GREEN WITH TINGE OF RED BOWEL MOVEMENTS. DR. SCHULTE AWARE. EGD CURRENTLY POSTPONED PER DR. SCHULTE. PATIENT MAY ADVANCE DIET TOLERATED. DAUGHTER AT THE BEDSIDE DURING VISITING HOURS. DAUGHTER AND PATIENT EXPRESSED FEELINGS OF CONTINUING CARE A FULL CODE. PATIENT HAD NAUSEA THIS AFTERNOON WITH TURNS AND ORAL CARE. SEE EMAR FOR MEDICATION ADMINISTRATION.
[2021-01-04 18:03] LABS: Hematocrit 25.3 % (33.0-51.0); Hemoglobin 8.4 g/dL (11.5-16.0)
--- NOTE | 2021-01-04 22:35 | NUR ---
PT CONT W LEVOPHED 20MCG/MIN, NEOSYNEPH 30MCG/MIN, VASOPRESSIN 0.04U/H, PROTONIX GTT AND MAINT IVF. PT IS VERY PALE, THIN, WITH FRAGILE SKIN. PT IS WEAK, BUT ALERT AND HAS MUMBLING CONVERSATION, ASKING REPEATEDLY WHEN SHE CAN GO HOME. EXPLAINED SHE IS VERY SICK, AND ON MEDICATIONS THAT REQUIRE HER TO BE IN ICU. CONT ON RA, DENIES PAIN IN GENERAL, BUT WHEN ABD IS PALP, STATES IT HURTS "A LITTLE BIT". ATTENDS CHANGED MEPILEX DRSC CONT CLEAN AND INTACT TO COCCYX, BUT INCONT OF GREEN LIQUID STOOL. RECTAL TUBE PLACED. REPOSITIONED TO R SIDE. SHARPE DRNG PALE YELLOW URINE. PT DAUGHTER CALLED, SHE HAD LEFT A NOTE REQ PT BE ASSISTED W PHONE. CALL TRANSFERED TO ROOM AND UPDATE PROVIDED. PT DOZING AND UNABLE TO TALK ON PHONE.
[2021-01-05 00:39] LABS: Hematocrit 24.2 % (33.0-51.0); Hemoglobin 8.1 g/dL (11.5-16.0)
[2021-01-05 06:23] LABS: PCO2 Arterial 24.4 mmHg (35-45); PO2 Arterial 71.4 mmHg (80-100); pH Blood Arterial 7.42 (7.35-7.45)
[2021-01-05 06:37] LABS: BASOPHILS ABSOLUTE AUTO 0.03 K/mm3 (0.00-0.23); BASOPHILS PERCENT AUTO 0 % (0-2); EOSINOPHILS ABSOLUTE AUTO 0.03 K/mm3 (0.00-0.68); EOSINOPHILS PERCENT AUTO 0 % (0-6); Hematocrit 24.9 % (33.0-51.0); Hemoglobin 8.2 g/dL (11.5-16.0); IMMATURE GRAN PERCENT AUTO 1 % (0-1); LYMPHOCYTES ABSOLUTE AUTO 2.41 K/mm3 (0.84-5.20); LYMPHOCYTES PERCENT AUTO 21 % (21-46); MONOCYTES ABSOLUTE AUTO 0.43 K/mm3 (0.16-1.47); MONOCYTES PERCENT AUTO 4 % (4-13); Mean Corpuscular HGB 28.5 pg (26.0-34.0); Mean Corpuscular HGB Conc 32.9 g/dL (31.5-36.5); Mean Corpuscular Volume 87 fL (80-100); Mean Platelet Volume 11.8 fL (9.1-12.4); NEUTROPHILS ABSOLUTE AUTO 8.68 K/mm3 (1.96-9.15); NEUTROPHILS PERCENT AUTO 74 % (41-73); NRBC ABSOLUTE 0.03 K/mm3 (0.00-0.02); NRBC Auto 0.3 /100 WBC (0.0-0.2); Platelet Count 155 K/mm3 (150-400); RDW Coefficient Variation 20.6 % (11.7-14.2); RDW Standard Deviation 64.9 fL (35.1-46.3); Red Blood Cell Count 2.88 M/mm3 (3.80-5.20); White Blood Cell Count 11.68 K/mm3 (4.00-11.30)
--- NOTE | 2021-01-05 06:45 | NUR ---
NO CHANGES TO PT PRESSOR REQUIREMENTS. MINIMAL AMT BILEOUS LIQUID STOOL PER RECTAL TUBE. URINE CONT CLEAR AND PALE YELLOW, BUT W DECREASED AMT. CONT ON RA, NO DISTRESS NOTED. PT HAS BEEN TURNED Q 2H TONOC. PT AWAKENED AND OCC CONFUSED, BUT REORIENTS EASILY. PT HAS BEEN PLEASANT, DENYING DISCOMFORT. CONT VERY PALE, AND SLEEPS WHEN UNDISTURBED. LABS DRAWN. REPORT TO DAYSFLFT.
[2021-01-05 07:09] LABS: Albumin, Blood 1.8 g/dL (3.4-5.0); Albumin/Globulin Ratio 0.6 (0.8-1.8); Bilirubin, Total 0.4 mg/dL (0.1-1.0); Bun/Creatinine Ratio 18.5 (12.0-20.0); Calcium, Blood 6.2 mg/dL (8.5-10.1); Creatinine, Blood 4.48 mg/dL (0.40-1.00); Globulin, Blood 2.9 g/dL (2.2-4.0); Magnesium, Blood 1.5 mg/dL (1.6-2.4); Phosphorus, Blood 3.3 mg/dL (2.5-4.9); Potassium, Blood 3.4 mmol/L (3.5-5.5); Total Protein, Blood 4.7 g/dL (6.4-8.2)
--- NOTE | 2021-01-05 08:46 | NUR ---
PT SLEEPING, AROUSES TO VOICE. LEVOPHED GTT AT 20MCG, NEOSYNEPHRINE AT 30MCG, DECREASED TO 20MCG, VASOPRESSIN INFUSING. PT PALE AND COOL. ABLE TO FOLLOW DIRECTIONS AND STATE SHE WAS IN HOPSITAL WHEN ASKED. PT STATED RETCHING W SMALL AMT OF EMESIS/CLEAR WHEN TURNED. PO MEDS HELD, ZOFRAN GIVEN.
--- NOTE | 2021-01-05 08:58 | NUR ---
NS DC'D, BICARB GTT AT 50CC/HR STARTED PER DR VALE. MAG 1GM INFUSING TO BE FOLLOWED BY K+20MEQ
--- NOTE | 2021-01-05 09:53 | NUR ---
DR HERNÁNDEZ IN TO SEE PT, EKG ORDERED AND COMPLETED; FULL UPDATE GIVEN
[2021-01-05 12:58] LABS: Hematocrit 24.4 % (33.0-51.0)
[2021-01-05 13:27] LABS: Magnesium, Blood 1.9 mg/dL (1.6-2.4)
[2021-01-05 13:39] LABS: Potassium, Blood 3.6 mmol/L (3.5-5.5); Troponin I 1.12 ng/mL (0.000-0.040)
--- NOTE | 2021-01-05 13:52 | NUR ---
echocardiogram complete
--- NOTE | 2021-01-05 17:46 | NUR ---
Spiritual care note: Provided prayer at bedside for Mrs. Lara. She appears quite frail and very sleepy. She did awaken to touch and verbalized a deep genny. She told me she is hospitalized because, "I was walking up the road with my mom, and when I got home, I was sick. I don't remeber what happened after that." She will benefit from continued spiritual support/encouragement. Therapy Tech services will remain available.
--- NOTE | 2021-01-05 19:32 | NUR ---
ASSUMPTION OF CARE/ SHIFT SUMMARY ASSUMED CARE OF PATIENT AROUND 1300. PATIENT RESTING/ NAPPING QUIETLY IN BED. PATIENT WOKE TO VERBAL STIMULI. PATIENT ALERT AND ORIENTED TO SELF, FAMILY AND FOLLOW COMMANDS. PATIENT HAD TMAX OF 99.8 DEGREES FAHRENHEIT. PATIENT DENIED PAIN DURING SHIFT. PATIENT REMAINED SATTING 90% AND GREATER ON RA. PATIENT REMAINED IN SR TO ST WITH OCCASIONAL PACS. HR 80S TO LOW 100S. SBP 70S TO LOW 100S. PATIENT REMAINED ON LEVOPHED AT 20 MCG/ MINUTE, VASOPRESSIN AT 0.04 UNITS/ MINUTE, NEOSYNEPHRINE INCREASED FROM 30 MCG/ MINUTE TO 70 MCG/ MINUTE. NS AT TKO, PROTONIX AT 10 MLS/ HOUR, TPN AT 55 MLS/ HOUR. PATIENT HAD NAUSEA TWICE DURING SHIFT. PATIENT GIVEN PRN ZOFRAN AND REPORTED RELIEF. DAUGHTER SAID THAT HER AND THE PATIENT ARE THE SAME AND GET VERTIGO/ MOTION SICKNESS "SO IT IS PROBABLY THE REPOSITIONING THAT IS MAKING HER SICK". RECTAL TUBE DRAINED 50 MLS OF BROWN/ GREEN, LIQUID STOOL. SHARPE DRAINED 1050 OF YELLOW, CLOUDY COLORED URINE. PATIENT HAS SCATTERED BRUISES T/O BODY. MEPILEX TO ULCER ON COCCYX. PATIENT REPOSITIONED Q2H. DAUGHTER HERE TO SEE PATIENT DURING SHIFT. DAUGHTER INFORMED DOCTOR THAT SHE IS FRUSTRATED WITH PEOPLE THAT KEEP ASKING ABOUT PATIENT'S CODE STATUS. DAUGHTER STATED "SHE IS FULL CODE AND WILL STAY FULL CODE". PATIENT APPEARS COMFORTABLE AT THIS TIME. BED LOW, CALL LIGHT IN REACH. REPORT HAS BEEN GIVEN TO ASSUMING HEAT PLANT SPECIALIST NURSE.
--- NOTE | 2021-01-05 19:40 | NUR ---
CARE ASSUMEND- REPORT RECEIVED FROM SABINA OH. PT AWAKE, CALM, FOLLOWS, CONFUSED. SHARPE & RECTAL TUBE IN PLACE, DRAINING. GTTS: LEVO20, MARIANNE 70, VASO 0.04, NS TKO, PROTONIX 10, TPN 55. CONTINUE ASSESSMENT AND CARE.
--- NOTE | 2021-01-05 20:33 | NUR ---
ASSESS PT TOOK 1 PO MED, REFUSED THE REST. CONTINUE SHIFT ASSESSMENT.
--- NOTE | 2021-01-05 21:09 | NUR ---
ASSESS PT VERY PLESENT, SAYING PLEASE AND THANK YOU, BUT DOES CONTINUE TO REFUSE PO MEDS EVEN AFTER IMPORTANCE EXPLAINED.
--- NOTE | 2021-01-05 22:45 | NUR ---
AT BEDSIDE, NEW ORDERS, SEE ORDERS.
--- NOTE | 2021-01-05 22:58 | NUR ---
DAUGHTER CALLED, UPDATED WITH STARTING DOPAMINE.
--- NOTE | 2021-01-05 23:07 | NUR ---
85% ON RA, STARTED 2 L NC.
--- NOTE | 2021-01-05 23:45 | NUR ---
MD NOTIFICATION DR. HERNÁNDEZ: STARTED PT ON DOPAMINE- PT HR INCREASED TO 150'S. PT VOMITED A FEW TIMES, CLEAR MUCUS EMESIS. ZOFRAN GIVEN. STOP DOPAMINE FOR INCREASED HR. CUSTOMER RELATIONS ADVISOR AWARE. CONTINUE ASSESSMENTS AND CARE.
--- NOTE | 2021-01-06 04:14 | NUR ---
ASSESS PT AWAKE, FOLLOWS, TALKITIVE, PLESENT, CONFUSED. NO CHANGE AT THIS TIME. CONTINUE DRIPPS(SEE FLOWSHEET). VITALS SEE FLOWSHEET. CONTINUE ASSESSMENTS AND CARE. CXR AND AM LABS DONE.
[2021-01-06 04:43] LABS: BASOPHILS ABSOLUTE AUTO 0.01 K/mm3 (0.00-0.23); BASOPHILS PERCENT AUTO 0 % (0-2); EOSINOPHILS ABSOLUTE AUTO 0.01 K/mm3 (0.00-0.68); EOSINOPHILS PERCENT AUTO 0 % (0-6); Hematocrit 23.3 % (33.0-51.0); Hemoglobin 7.7 g/dL (11.5-16.0); IMMATURE GRAN PERCENT AUTO 1 % (0-1); LYMPHOCYTES ABSOLUTE AUTO 2.21 K/mm3 (0.84-5.20); LYMPHOCYTES PERCENT AUTO 17 % (21-46); MONOCYTES ABSOLUTE AUTO 0.49 K/mm3 (0.16-1.47); MONOCYTES PERCENT AUTO 4 % (4-13); Mean Corpuscular HGB 28.8 pg (26.0-34.0); Mean Corpuscular Volume 87 fL (80-100); Mean Platelet Volume 11.3 fL (9.1-12.4); NEUTROPHILS ABSOLUTE AUTO 10.41 K/mm3 (1.96-9.15); NEUTROPHILS PERCENT AUTO 79 % (41-73); NRBC ABSOLUTE 0.06 K/mm3 (0.00-0.02); NRBC Auto 0.5 /100 WBC (0.0-0.2); Platelet Count 139 K/mm3 (150-400); RDW Standard Deviation 63.5 fL (35.1-46.3); Red Blood Cell Count 2.67 M/mm3 (3.80-5.20); White Blood Cell Count 13.23 K/mm3 (4.00-11.30)
[2021-01-06 04:57] LABS: Albumin, Blood 1.6 g/dL (3.4-5.0); Anion Gap 12 mmol/L (6-16); Blood Urea Nitrogen 65 mg/dL (8-24); Bun/Creatinine Ratio 18.6 (12.0-20.0); CO2, Blood 17 mmol/L (21-32); Calcium, Blood 6.2 mg/dL (8.5-10.1); Chloride, Blood 107 mmol/L (98-108); Creatinine, Blood 3.49 mg/dL (0.40-1.00); Glomerular Filtration Rate 13 (60-); Glucose, Blood 184 mg/dL (70-99); Magnesium, Blood 1.6 mg/dL (1.6-2.4); Phosphorus, Blood 2.3 mg/dL (2.5-4.9); Potassium, Blood 3.5 mmol/L (3.5-5.5); Sodium, Blood 136 mmol/L (136-145); Triglycerides 230 mg/dL (30-160)
--- NOTE | 2021-01-06 06:38 | NUR ---
END OF SHIFT NOTE OVERNIGHT NEW RESULTS PER MD OF LOW EF-MD ORDERED DOPAMINE TO BE STARTED. WHEN STARTED, PT BECAME SICK-VOMITED A FEW TIMES, CLEAR, PHLEGM LIKE SECREATIONS, ZOFRAN GIVEN, PT CONTINUED TO BE NAUSEATED. PT'S HR INCREASED TO 150'S. REJECT OPENER NOTIFIED, DOPAMINE STOPPED. DR. HERNÁNDEZ NOTIFIED- STOP DOPAMINE AND SHE WILL REASSESS PT IN AM. LOTS OF ECTOPY ON THE MONITOR- OVERNIGHT, PT HAS BEEN AWAKE MOST OF THE NIGHT, CHATTING, FOLLOWING DIRECTIONS, PT UNSURE OF WHERE SHE IS, AND IS CONFUSED. PT WAS REASSURED AND DISCUSSED WITH PT DAUGHTER COMING IN TODAY TO SEE PT. WILL CONTINUE ASSESSMENTS AND CARE. VITALS & GTTS PER FLOWSHEET.
--- NOTE | 2021-01-06 08:30 | NUR ---
INITIAL ASSESSMENT PATIENT ALERT AND ORIENTED TO SELF, FOLLOWING DIRECTIONS, FAMILY. PATIENT OTHERWISE CONFUSED. PATIENT WEAK BUT ABLE TO MOVE ALL EXTREMITIES. PATIENT HAS NO COMPLAINTS OF PAIN OR DISCOMFORT. PATIENT AFEBRILE. PATIENT SATTING 90% AND GREATER ON RA. LUNGS CLEAR, LOWER LOBES DIMINISHED. PATIENT IN A. FIB WITH PVCS. HR UP TO THE 160S. SBP 70S TO 1-TEENS. PATIENT NAUSEOUS WITH REPOSITIONING. RECTAL TUBE IN PLACE DRAINING SMALL AMOUNT OF BROWN/ GREEN, LIQUID STOOL. SHARPE IN PLACE DRAINING YELLOW COLORED URINE. SKIN PALE. SCATTERED BRUISES NOTED. MEPILEX TO ULCER ON COCCYX. LEVOPHED AT 20 MCG/ MINUTE, VASOPRESSIN AT 0.04 UNITS/ MINUTE, NEOSYNEPHRINE AT 70 MCG/ MINUTE, NS TKO, TPN AT 55 MLS/ HOUR, PROTONIX AT 10 MLS/ HOUR. BED LOW, CALL LIGHT IN REACH. WILL CONTINUE TO MONITOR PATIENT FREQUENTLY THROUGHOUT SHIFT.
--- NOTE | 2021-01-06 09:30 | NUR ---
DR. HERNÁNDEZ UPDATED ON PATIENT STATUS. INFORMED THAT PATIENT IN A.FIB WITH AM WITH HR UP TO 160S. INFORMED THAT PATIENT DOES NOT HAVE ANTICOAG. PATIENT HAS HAD GI BLEED; NO ACTIVE BLEEDING NOTED. INFORMED THAT PATIENT NAUSEAOUS WHEN BEING REPOSITIONED. INFORMED THAT PATIENT GIVEN PRN ZOFRAN THIS AM. INFORMED THAT PATIENT HAD 50 MLS OF BROWN/ GREEN, LIQUID STOOL OUT ON SPACE AND MISSILE OPERATIONS SPACELIFT. INFORMED THAT HEMOGLOBIN 7.7, WBC INCREASED FROM 11.68 TO 13.23, PHOSPHORUS 2.3, POTASSIUM 3.5, AND CALCIUM 6.2. ORDERS RECEIVED.
--- NOTE | 2021-01-06 11:35 | NUR ---
PATIENT PLACED ON 2 L NC TO KEEP SATS OVER 92%.
--- NOTE | 2021-01-06 11:40 | NUR ---
DR. VALE ORDERED SODIUM PHOS 10 MM. INFORMED THAT 10 MM KPHOS ORDERED BY DR. HERNÁNDEZ THIS AM AND IS INFUSING. DR. VALE STATED TO GO AHEAD AND ADMINISTER SODIUM PHOS AFTER KPHOS COMPLETE.
--- NOTE | 2021-01-06 11:51 | NUR ---
PATIENT INCREASED TO 5 L NC.
[2021-01-06 12:10] LABS: ANTIGLOMERULAR BM AB 3 units (0-20)
--- NOTE | 2021-01-06 12:35 | NUR ---
PATIENT AFEBRILE. PATIENT REFUSED LUNCH. PATIENT DENIES PAIN OR DISCOMFORT. EKG PERFORMED. HR UP TO 170S. SBP 50S TO 80S. PATIENT SOB WITH TALKING. WOB INCREASED. PATIENT ON 3 TO 6 L NC TO KEEP SATS 92% AND GREATER. AMIODARONE AT 1 MG/ MINUTE AND MARIANNE-SYNEPHRINE UP TO 100 MCG/ MINUTE.
--- NOTE | 2021-01-06 15:04 | NUR ---
Pt resting in bed upon arrival. Pt C/O pain in her left abdomen area. Reported pain to Bedside RN Mojgan. Family at bedside. Family appears withdrawn from this RN and does not engage in conversation. Encouraged family to ask questions and discuss concerns. Minimal response from family. Ended visit to allow family to visit with Pt. Spoke with Bedside RN Mojgan and discussed case. Palliative Care will remain available.
[2021-01-06 15:10] LABS: ALBUMIN 2.1 g/dL (2.9-4.4); ALPHA-1-GLOBULIN 0.2 g/dL (0.0-0.4); ALPHA-2-GLOBULIN 0.7 g/dL (0.4-1.0); BETA GLOBULIN 0.5 g/dL (0.7-1.3); GAMMA GLOBULIN 0.8 g/dL (0.4-1.8); GLOBULIN, TOTAL 2.2 g/dL (2.2-3.9); IMMUNOGLOBULIN A, QN, SERUM 214 mg/dL (64-422); IMMUNOGLOBULIN G, QN, SERUM 784 mg/dL (586-1602); IMMUNOGLOBULIN M, QN, SERUM 20 mg/dL (26-217); M-SPIKE Not Observed g/dL (Not Observed); PROTEIN, TOTAL, SERUM 4.3 g/dL (6.0-8.5)
--- NOTE | 2021-01-06 15:30 | NUR ---
DR. HERNÁNDEZ INFORMED THAT PATIENT STILL IN PAIN, PER PATIENT'S DAUGHTER, AFTER RECEIVING PRN TYLENOL. INFORMED THAT DAUGHTER WANTED HER TO KNOW PATIENT HAS TEMP OF 97.0 DEGREES FAHRENHEIT BUT FEELS HOT. NO ORDERS RECEIVED. DR. HERNÁNDEZ IN ROOM TO SPEAK WITH PATIENT AND DAUGHTER AT THIS TIME.
--- NOTE | 2021-01-06 16:00 | NUR ---
PATIENT AFEBRILE. PATIENT MORE LETHARGIC THIS AFTERNOON. PATIENT ANXIOUS AT TIMES. PATIENT SPEECH IS MORE DIFFICULT TO UNDERSTAND. HR IN THE 80S. SBP 70S TO LOW 100S. SOB AND TACHYPNEIC AT TIMES. PATIENT ON 3 TO 5 L NC. RECTAL TUBE DC'D.
[2021-01-06 16:25] LABS: Phosphorus, Blood 4.3 mg/dL (2.5-4.9); Potassium, Blood 3.6 mmol/L (3.5-5.5)
--- NOTE | 2021-01-06 19:34 | NUR ---
ASSUMED CARE RECIEVED BEDSIDE REPORT ON PT FROM ADRIANO MUHAMMAD AT 1720. PT APPEARS PALE, LYING IN BED WITH MOUTH OPEN AND AGONAL BREATHING. PROTONIX INFUSING @ 10ML/HR, AMIODARONE @ 0.5MG/MIN, LEVOPHED @ 20MCG/MIN, NEOSYNEPHRINE @ 120MCG/MIN, VASOPRESSIN @ 0.04UNIT/MIN, AND TPN @ 55ML/HR. AMIODARONE TURNED OFF, LEVOPHED INCREASED TO 30MCG/MIN AND NEOSYNEPHRINE INCREASED TO 200MCG/MIN DUE TO MAP BELOW 50. PT HR AND MAP CONTINUED TO DECREASE UNTIL TIME OF CALLED BY DR. HERNÁNDEZ AT 1930. DAUGHTER AT BEDSIDE FOLLOWING TIME OF . ALL INFUSIONS STOPPED AND DISCONNECTED FROM CL.
--- NOTE | 2021-01-06 19:35 | NUR ---
SHIFT SUMMARY PATIENT ORIENTED TO SELF, FAMILY AND FOLLOW COMMANDS AT BEGINNING OF SHIFT. PATIENT BECAME MORE LETHARGIC THROUGHOUT SHIFT. PATIENT REMAINED AFEBRILE. PATIENT FELT HOT EVEN WHEN TEMP 97.0 DEGREES FAHRNHEIT. PATIENT GIVEN PRN TYLENOL OT THIS SHIFT FOR COMPLAINT OF PAIN IN L ABDOMEN. PATIENT SATTED 90% AND GREATER ON RA TO 6 L NC. PATIENT NEEDED MORE O2 AND WAS MORE SOB WHEN HR HIGH. PATIENT IN AFIB WITH HR UP TO 170S DURING SHIFT. PATIENT STARTED ON AMIODARONE DRIP AND BOLUS. TOOK A WHILE FOR HR TO COME DOWN BUT FINALLY EFFECTIVE AT GETTING HR INTO THE 80S. SBP RANGED FROM 50S TO 1-TEENS. PATIENT REMAINED ON LEVOPHED AT 20 MCG/ MINUTE, VASOPRESSIN AT 0.04 UNITS/ MINUTE AND NEOSYNEPHRINE WAS INCREASED FROM 70 TO 100 MCG/ MINUTE. DOBUTAMINE WAS TRIED FOR BP THIS SHIFT, HOWEVER WAS STOPPED SHORTLY AFTER PATIENT VITALS AND HEART RHYTHM NOT TOLERATING. PATIENT HAD OUT 50 MLS OF GREEN/ BROWN, LIQUID STOOL FROM RECTAL TUBE. RECTAL TUBE DC'D THIS SHIFT AND ATTENDS PLACED. PATIENT PLACED ON PUREE DIET BY SPEECH THERAPIST. PATIENT HAD NO APPETITE. PATIENT CONTINUED TO FEEL NAUSEOUS WITH EACH REPOSITIONING. SHARPE DRAINED 450 MLS OF YELLOW COLORED URINE. NO CHANGES TO SKIN NOTED. TPN REMAINED AT 55 MLS/ HOUR AND PROTONIX AT 10 MLS/ HOUR. PATIENT RECEIVED 10 MM KPHOS AND 10 MM SODIUM PHOS FOR LOW PHOS THIS AM. TIFFANY CONSULTED THIS SHIFT FOR A. FIB AND LOW EF. PATIENT RECEIVED 1 G MAG. PATIENT'S DAUGHTER HAD LONG DISCUSSION WITH DR. HERNÁNDEZ AND PRIMARY NURSE AND VOICED THAT SHE WANTED TO LET HER MOM BE IN [place] AND DID NOT WANT HER TO SUFFER. DAUGHTER STATED THAT IF HER MOM THEN TO LET HER SLEEP. AFTER LONG DISCUSSION, PATIENT CHANGED TO DNR STATUS. PATIENT STATUS CONTINUED TO PLUMMET AND AT SHIFT REPORT PATIENT'S DAUGHTER CALLED AND IMMINENT. DAUGHTER ARRIVED JUST SECONDS AFTER PATIENT PASSING. DR. HERNÁNDEZ AND PRIMARY DAY SHIFT NURSE AND PRIMARY ASSUMING PLANE RUNNER NURSE AT BEDSIDE WITH DAUGHTER.
--- NOTE | 2021-01-06 19:35 | NUR ---
AMMONIA NITRATE OPERATOR DOCUMENTATION REVIEW I HAVE READ AND AGREE WITH ALL NOTES ENTERED FROM .JOSE[facility]
[2021-01-07 11:08] LABS: ANA DIRECT Negative (Negative); ANTIMYELOPEROXIDASE (MPO) ABS <9.0 U/mL (0.0-9.0); ANTIPROTEINASE 3 (PR-3) ABS <3.5 U/mL (0.0-3.5); ATYPICAL PANCA <1:20 titer (Neg:<1:20); CYTOPLASMIC (C-ANCA) <1:20 titer (Neg:<1:20); PERINUCLEAR (P-ANCA) <1:20 titer (Neg:<1:20)
[2021-01-07 12:00] LABS: M-SPIKE, % Not Observed % (Not Observed); PROTEIN,TOTAL,URINE 8.5 mg/dL (Not Estab.)
== END 2021-01-06 19:30 | DRG 871 ==
LOC: ER 00:03 → ICUE 03:22 → ICUW 03:22 → ICUE 03:22
PROVIDERS: Emergency Medicine; Internal Medicine; Internal Medicine Critical Care Medicine; Internal Medicine Nephrology; ADMIT Family Medicine
PROC: 05HN33Z Insertion of Infusion Device into Left Internal Jugular Vein, Percutaneous Approach (ICD-10-PCS; principal; 2021-01-03)
PROC: B544ZZA Ultrasonography of Left Jugular Veins, Guidance (ICD-10-PCS; 2021-01-03)
PROC: 3E043XZ Introduction of Vasopressor into Central Vein, Percutaneous Approach (ICD-10-PCS; 2021-01-03)
PROC: 30233N1 Transfusion of Nonautologous Red Blood Cells into Peripheral Vein, Percutaneous Approach (ICD-10-PCS; 2021-01-04)
PROC: 3E0336Z Introduction of Nutritional Substance into Peripheral Vein, Percutaneous Approach (ICD-10-PCS; 2021-01-05)
DX: A41.9 Sepsis, unspecified organism (principal); I21.4 Non-ST elevation (NSTEMI) myocardial infarction; J69.0 Pneumonitis due to inhalation of food and vomit; J18.9 Pneumonia, unspecified organism; R65.21 Severe sepsis with septic shock; G92 Toxic encephalopathy; N17.9 Acute kidney failure, unspecified; E87.2 Acidosis; E44.0 Moderate protein-calorie malnutrition; Z68.1 Body mass index [BMI] 19.9 or less, adult; Z66 Do not resuscitate; E87.5 Hyperkalemia; E83.52 Hypercalcemia; Z20.822 Contact with and (suspected) exposure to COVID-19; E88.09 Other disorders of plasma-protein metabolism, not elsewhere classified; D63.1 Anemia in chronic kidney disease; I12.9 Hypertensive chronic kidney disease with stage 1 through stage 4 chronic kidney disease, or unspecified chronic kidney disease; I25.10 Atherosclerotic heart disease of native coronary artery without angina pectoris; I73.9 Peripheral vascular disease, unspecified; I35.0 Nonrheumatic aortic (valve) stenosis; E78.5 Hyperlipidemia, unspecified; R57.1 Hypovolemic shock; F03.90 Unspecified dementia, unspecified severity, without behavioral disturbance, psychotic disturbance, mood disturbance, and anxiety; K21.9 Gastro-esophageal reflux disease without esophagitis; M19.90 Unspecified osteoarthritis, unspecified site; I25.5 Ischemic cardiomyopathy; L89.152 Pressure ulcer of sacral region, stage 2; E83.42 Hypomagnesemia; E83.39 Other disorders of phosphorus metabolism; E87.6 Hypokalemia; I48.0 Paroxysmal atrial fibrillation; N18.30 Chronic kidney disease, stage 3 unspecified; Z96.611 Presence of right artificial shoulder joint; I25.2 Old myocardial infarction; Z90.49 Acquired absence of other specified parts of digestive tract; Z98.890 Other specified postprocedural states; Z95.5 Presence of coronary angioplasty implant and graft; Z79.899 Other long term (current) drug therapy; Z79.82 Long term (current) use of aspirin; Z90.89 Acquired absence of other organs; Z95.828 Presence of other vascular implants and grafts; Z92.21 Personal history of antineoplastic chemotherapy; Z85.038 Personal history of other malignant neoplasm of large intestine
CPT/HCPCS: 0097U; 36415; 36430; 36556; 36600; 51702; 71045; 74176; 80053; 80069; 81001; 82248; 82272; 82533; 82550; 82784; 82803; 82947; 83516; 83520; 83605; 83735; 83880; 84100; 84132; 84145; 84156; 84165; 84166; 84478; 84484; 84550; 85014; 85018; 85025; 85027; 86038; 86256; 86334; 86335; 86850; 86900; 86901; 86923; 87040; 92610; 93005; 93010; 93306; 93308; 93321; 99285-25; A9270; C1751; C9113; J0282; J0696; J1250; J1265; J2370; J2405; J2543; J3411; J3475; J3480; J7030; J7040; J7060; J7070; P9016; P9612; U0004